=== PATIENT | male | born 1935 | race Caucasian/White ===

== ENCOUNTER 2020-08-28 11:09 | Inpatient (IN) ==
[2020-08-28] MEDS ORDERED: 0.9 % SODIUM CHLORIDE 1,000 ML IV SCH (11:45)
--- NOTE | 2020-08-28 12:23 | XRay Report ---
CLINICAL INFORMATION: Altered mental status COMPARISON: 08/04/2018 FINDINGS: Sternotomy changes noted. The heart is minimally enlarged but unchanged. Mediastinum and pulmonary vessels are normal. Minor bibasilar atelectasis noted. A skin fold, bordering the lateral chest wall and the right mid and lower lung, mimics a pneumothorax. No effusion IMPRESSION: Minor bibasilar atelectasis Interpreted and Authenticated by: Eris Calix 08/28/20
[2020-08-28 12:41] LABS: Basophils # (Auto) 0.03 K/mcL (0.00-0.20); Basophils % (Auto) 0.4 % (0.0-2.0); Eosinophils # (Auto) 0.16 K/mcL (0.00-0.70); Eosinophils % (Auto) 2.3 % (0.0-7.0); Lymphocytes # (Auto) 0.75 K/mcL (1.50-4.80); Lymphocytes % (Auto) 10.6 % (15.0-49.0); Mean Cell Volume 97.8 fL (80.0-100.0); Mean Corpuscular HGB Conc 30.6 g/dL (31.0-36.0); Monocytes # (Auto) 0.77 K/mcL (0.10-0.90); Monocytes % (Auto) 10.9 % (1.0-12.0); Neutrophils % (Auto) 75.8 % (38.0-78.0); Platelet Count 293 K/mcL (140-440); RBC 3.68 M/mcL (4.50-5.90); WBC 7.1 K/mcL (4.5-11.0)
--- NOTE | 2020-08-28 12:46 | Cat Scan Report ---
CLINICAL INFORMATION: Altered mental status COMPARISON: Brain MRI 08/03/2019 TECHNIQUE: 2.5 mm helical slices were obtained in the skull base to vertex. Following reconstruction, axial reformatted images were reviewed at bone and parenchymal windows. The exam was performed using radiation dose optimization techniques including, but not limited to, automated exposure control, adjustment of the mA and/or kV according to patient size and use of iterative reconstruction technique. FINDINGS: Shunt catheter enters through a right frontal craniotomy extending through the right frontal lobe into the frontal horn of the right lateral ventricle. The tip is in the foramen of Kirk. The ventricles, sulci, fissures, and cisterns are proportionately enlarged compatible with mild atrophy. There is no disproportionate ventricular enlargement to suggest recurrent normal pressure hydrocephalus.. No extra-axial fluid collections are identified. The cerebrum, brainstem and cerebellum are, otherwise unremarkable. There is no evidence of hemorrhage, mass effect, or edema. Bone windows show no osseous abnormality. 22 mm region of increased density in the anterior posterior chamber of the right eye has been stable since 2019 and presumably is a surgical prostheses IMPRESSION: MAMMALOGIST shunt catheter in stable satisfactory position and appears to be functional. No evidence of recurrent NPH. Mild underlying atrophy expected for age. Interpreted and Authenticated by: Eris Calix 08/28/20
[2020-08-28 12:59] LABS: ALT/SGPT 19 U/L (<40); AST/SGOT 43 U/L (<40); Albumin 3.2 gm/dL (3.2-5.2); Albumin/Globulin Ratio 0.8 (1.0-2.3); Alkaline Phosphatase 123 U/L (39-117); Bilirubin,Total 0.2 mg/dL (0.1-1.0); Blood Urea Nitrogen 43 mg/dL (8-23); Carbon Dioxide 34 mmol/L (22-30); Chloride 97 mmol/L (96-108); Globulin 3.8 gm/dL (2.2-3.7); Glomerular Filtration Rate 20; Glucose 104 mg/dL (70-105)
[2020-08-28] MEDS ORDERED: 0.9 % SODIUM CHLORIDE 1,000 ML IV ONE (14:26)
--- NOTE | 2020-08-28 14:42 | Emergency Department Note ---
Altered Mental Status HPI General Chief Complaint: Altered Mental Status Stated Complaint: confusion Time Seen by Provider: 08/28/20 11:12 Source: patient, family, EMS, RN notes reviewed and old records reviewed Mode of arrival: wheelchair Limitations: altered mental status History of Present Illness HPI Narrative: Narrative: 85-year-old male complaining of increasing generalized weakness, knees giving out, difficulty walking x2 days. Is also noted clonic activity in his right upper extremity. This is new to him. He has had poor p.o. intake poor urine output for the last 2 days. He denies any focal weakness any loss of control of bowel or bladder any fevers or chills any headache any nausea vomiting bowel or bladder changes. MD complaint: altered mental status, confusion and weakness Onset (ago): day(s) (2) Timing confirmed by: family member Severity: moderate Consistency of Symptoms: getting worse Context: history of similar presentation and other (Hydrocephalus) Associated symptoms: Reports loss of appetite, malaise, weakness and difficulty walking; Denies chest pain, cough, diaphoresis, fever, chills, headaches, nausea/vomiting, rash, seizure, shortness of breath, syncope, foul smelling urine, diarrhea and incontinence Related Data Home Medications Medication Instructions Recorded Confirmed omega-3 fatty acids 500 mg capsule 1,000 mg PO QDAY cap 01/18/15 08/28/20 aspirin 325 mg tablet 325 mg PO QDAY 09/29/17 08/28/20 cyanocobalamin (vitamin B-12) 2,500 mcg PO QDAY 05/20/19 08/28/20 2,500 mcg tablet diphenhydramine 25 1 tab PO QHS 05/20/19 08/28/20 mg-acetaminophen 500 mg tablet echinacea 380 mg capsule 760 mg PO ONCE cap 05/20/19 08/28/20 glucosamine-chondroitin 250 mg-200 1 tab PO QDAY tab 05/20/19 08/28/20 mg tablet melatonin 5 mg capsule 5 - 10 mg PO QHS cap 05/20/19 08/28/20 multivitamin 1 tab PO QAM 05/20/19 08/28/20 vit C 250 mg-vit E 90 mg-zinc 40 1 tab PO QDAY cap 05/20/19 08/28/20 mg-copper 1 sp-[id number]-[id number] capsule Previous Rx's Medication Instructions Recorded nitroglycerin 0.4 mg sublingual 0.4 mg SUBLINGUAL Q5-15M PRN #25 10/05/18 tablet tab metformin 500 mg tablet 500 mg PO BID #180 tab 02/29/20 isosorbide mononitrate 30 mg 15 mg PO QDAY #45 tab 05/16/20 tablet,extended release 24 hr meloxicam 7.5 mg tablet 7.5 mg PO QDAY #60 tab 05/31/20 tramadol 50 mg tablet 50 mg PO BID PRN #60 tab 05/31/20 atorvastatin 20 mg tablet 20 mg PO QDAY #90 tab 06/07/20 gabapentin 300 mg capsule 300 mg PO BID #180 cap 06/07/20 levothyroxine 100 mcg tablet 100 mcg PO QDAY #90 tab 07/17/20 midodrine 10 mg tablet 5 mg PO TID #45 tab 08/08/20 Allergies Allergy/AdvReac Type Severity Reaction Status Date / Time No Known Drug Allergies Allergy Verified 08/28/20 11:13 Review of Systems ROS ROS Narrative: Narrative: All systems ED: reviewed and negative except as stated. [facility] Narrative Patient History Narrative: Narrative: Medical/Surgical/Family History All Active Problems (Updated 08/28/20 @ 16:17 by Shmuel Spivey MD) Acute renal failure (Acute) Medicare annual wellness visit, subsequent (Acute) Edema of left lower extremity (Chronic) Left ankle pain (Chronic) Macular degeneration (Chronic) High cholesterol (Chronic) Personal history of malignant neoplasm of bladder (Chronic) Spondylosis without myelopathy or radiculopathy, lumbar region (Chronic) senior living (current) use of opiate analgesic (Chronic) UTI (urinary tract infection) (Acute) Weakness (Acute) Left rib fracture (Acute) 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) Contracture of hand (Chronic) Numbness and tingling in both hands (Acute) NPH (normal pressure hydrocephalus) (Chronic) Prostate cancer (Chronic) Hypotension (Chronic) Hydrocephalus (Chronic) Ataxia (Acute) COPD (chronic obstructive pulmonary disease) (Chronic) CAD (coronary artery disease) (Chronic) 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) Diabetes mellitus type 2, controlled (Chronic) Pulmonary hypertension, primary (Chronic) Peripheral vascular disease (Chronic) PVD (peripheral vascular disease) with claudication (Chronic) Stable angina pectoris (Chronic) Metabolic syndrome X (Chronic) Overweight (BMI 25.0-29.9) (Chronic) Hyperlipidemia (Chronic) Hyperlipidemia associated with type 2 diabetes mellitus (Chronic) Trochanteric bursitis of left hip (Chronic) Urine incontinence (Chronic) Altered mental status (Acute) Dizziness (Chronic) Bladder cancer (Chronic) RODNEY (dyspnea on exertion) (Chronic) Hyperuricemia (Chronic) Chronic pain (Chronic) Low Back Pain (Chronic) 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 Intermittent confusion and poor memory, ataxia, and urinary incontinence with urgency, possibly secondary to NPH MR brain with contrast scheduled for August 03. This is been delayed a couple of times for various reasons. Refer to neurology today, may need neurosurgery referral also. We will try and set up home health nurse visits for him because he is not able to care for himself currently, and his one friend that helps him is overworked Anemia Stable. Mild-normochromic normocytic. No source of bleeding. Continue iron supplementation. Monitor CBCs. Ataxia Thought to be secondary to UTI, but more likely related to possible NPH Bladder cancer Confirmed by [facility]. Treated with instillations of mitomycin C. Blepharitis CAD (coronary artery disease) post CABG 2003 5 vessel Stress test 03/10/2019 showed no reversible ischemia, mild hypokinesis of the inferior wall, and a EF of 46%. Carotid bruit Carotid stenosis Bilateral carotid endarterectomies Carpal tunnel syndrome of right wrist Pain well controlled after steroid injection, as well as gabapentin, tramad ol, and meloxicam. Tramadol dose is 50 mg, 1-2 times daily. DISINTEGRATOR reviewed, no concerns. We will contact home health about OT specifically working on his right hand Cellulitis Chest pain Rarely slight chest tightness. Has not used nitroglycerin. 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 We will do it at next visit. Diverticulosis of colon 08/18/2012 Dizziness Multifactorial, related to peripheral neuropathy, possibly orthostasis, altho ugh orthostatics were negative today. We will wean off of fludrocortisone 0.025 mg daily Continue fluid intake of 3-4 bottles of water per day Start midodrine 5 mg 3 times daily Continue to monitor blood pressure at home RODNEY (dyspnea on exertion) Occasionally Erectile dysfunction Patient okay for possible procedures with urology if desired, but he should not take Viagra or other ED medications due to low blood pressures and current use of isosorbide. Exudative senile macular degeneration of retina OD>OS Facet arthropathy 08/25/14-[place] Gout Hematuria High cholesterol Hydrocephalus MRI with contrast pending for further characterization of possible NPH Referred to neurology for help with work-up, but may need neurosurgery for treatment Hyperlipidemia Restart Lipitor 20 mg daily Hyperlipidemia associated with type 2 diabetes mellitus Hypertension, essential Elevated today. Takes only isosorbide. Fludrocortisone for hypotension was just stopped a couple of weeks ago. Goal less than 150/90. Continue monitoring at home. Let me know if not below goal. Hyperuricemia Hypotension No longer taking fludrocortisone. No longer having hypotensive episodes. 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 Patient did not use finger brace as recommended. He also did not follow-up with Dr. Michele. Medicare annual wellness visit, subsequent Metabolic syndrome X NPH (normal pressure hydrocephalus) Status post CARD SORTER shunt with mild improvement of symptoms. Continues to have dizziness and ataxia. Explained to patient that we may not be able to improve his symptoms completely. Trial of meclizine Patient should use a walker at all times. Patient may follow-up with Dr. Vega as needed Numbness and tingling in both hands Possibly secondary to peripheral neuropathy secondary to diabetes Will check TSH, B12, folate Osteoarthritis of spine Overweight (BMI 25.0-29.9) Peripheral vascular disease Personal history of malignant neoplasm of bladder Prostate cancer New diagnosis based on pathology of shavings from TURP Watch and wait approach, per urology. Pseudophakia Pulmonary hypertension, primary PVD (peripheral vascular disease) with claudication Follows with Dr. Urias Continue aspirin and statin Retinal detachment 10/24/14-[place] Spinal stenosis of lumbar region 08/25/14-[place] Spondylosis without myelopathy or radiculopathy, lumbar region Stable angina pectoris Trochanteric bursitis of left hip Steroid injection today. See procedure note for details. Tolerated well. Tubular adenoma Urine incontinence Secondary to recent TURP. But possible NPH may be contributing Myrbetriq is helping. Patient wears depends now. He was referred for pelvic floor physical therapy by urology. UTI (urinary tract infection) Completed course of Macrobid Check urine dipstick and culture today UTI (urinary tract infection) Surgical History Abnormal cystoscopy 02/11/2018 TURBT. Urethral stricture. Mitomycin-C. Dr. Ranulfo Camejo. History of carotid endarterectomy Left, right done 11/23/2012 w/Vascu-Guard patch angioplasty History of cataract surgery Bilateral History of cholecystectomy History of colonoscopy 07/28/2012 Dr. Mendez Result: Tubular Adenoma History of coronary artery bypass graft 2004 5 bypass grafts History of esophagogastroduodenoscopy (07/15/17) 07/26/2012 No abnormalities found. 07/15/17 Mild Schatzki ring. History of hernia repair History of surgery LESI #2 L2-3 w/o sed 08/29/201404/22 LESI #1 L2-3 w/o sed 04/18/1409/20 LESI #1 L2-3 w/o sed 09/28/201305/21 LESI #3 L2-3 w/o sed 05/18/1304/21 LESI #2 L3-4 w/o sed 04/19/201303/21 LESI #1, L3-4 03/24/13 w/o sed 05/20 VI #2 w/cath w/o sed 05/19/201204/20 VI #1 w/cath w/o sed 05/06/2012 History of transurethral resection of prostate Status post lumbar spinal fusion Family History Brother Diabetes mellitus Cardiac disease Father Diabetes mellitus Heart failure Cerebrovascular accident at age 84 Mother Acute myocardial infarction Passed at age 74 Uncle Type 2 diabetes mellitus Social History Smoking Status: Former smoker Alcohol Intake Frequency: former alcohol drinker Substance Use: does not use Exam Narrative Narrative: Narrative: General Limitations: altered mental status General appearance: Present alert, in no apparent distress, malaise and thin Head Head: Present normocephalic and other (V P shunt depresses easily and refills well.) Eye Eye: Present normal appearance, EOMI and other (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) ENT ENT: Present normal exam and mucous membranes dry Neck Neck: Present normal inspection and full ROM Chest Chest: Present normal inspection; Absent tenderness Respiratory Respiratory: Present normal lung sounds bilaterally; Absent respiratory distress Cardiovascular Cardiovascular: Present regular rate, normal rhythm and systolic murmur Adbominal Abdominal: Present soft; Absent distention, tenderness, guarding and rebound Extremities Extremities: Present normal inspection and full ROM; Absent tenderness, pedal edema and pretibial edema Back Back: Present normal inspection; Absent CVA tenderness (R) and CVA tenderness (L) Neurological Neurological: Present alert and oriented X3 Psychiatric Psychiatric: Present normal affect and normal mood Skin Skin: Present warm (WNL); Absent rash Course Vital Signs Vital signs: Vital Signs Temperature 97.7 F 08/28/20 11:10 Pulse Rate 87 08/28/20 11:10 Respiratory Rate 18 08/28/20 11:10 Blood Pressure 168/88 08/28/20 11:10 Pulse Oximetry (%) 91 08/28/20 11:10 Temperature 97.7 F 08/28/20 11:10 Pulse Rate 88 08/28/20 16:04 Respiratory Rate 18 08/28/20 16:04 Blood Pressure 143/115 08/28/20 16:04 Pulse Oximetry (%) 96 08/28/20 16:04 [facility] MDM Narrative Medical decision making narrative: Narrative: 85-year-old male with generalized weakness nonfocal. Has an elevated BUN/creatinine ratio at 43/2.8 and this acute renal insufficiency is new when compared to old labs. He has anemia which has been noted in the past and his relative Graham unchanged compared to old H&H. Head CT shows known hydrocephalus his CARD SORTER shunt appears to be functioning well and I do not believe this is contributory according to son he has had very poor p.o. intake over the last week and the patient appears grossly dehydrated. Diagnosis acute renal insufficiency with acute dehydration. Patient will be admitted for IV fluid rehydration and to follow his renal insufficiency. Medical Records Medical records reviewed: Yes I reviewed the patient's medical records. Lab Data Lab results reviewed: Yes I reviewed the patient's lab results. Result diagrams: 08/28/20 11:46 08/28/20 11:46 Labs: Lab Results 08/28/20 08/28/20 08/28/20 Range/Units 11:46 11:46 11:50 WBC 7.1 (4.5-11.0) K/mcL RBC 3.68 L (4.50-5.90) M/mcL Hgb 11.0 L (13.5-16.5) g/dL Hct 36.0 L (41.0-55.0) % MCV 97.8 (80.0-100.0) fL MCH 29.9 (26.0-34.0) pg MCHC 30.6 L (31.0-36.0) g/dL RDW 13.0 (11.5-14.5) % Plt Count 293 (140-440) K/mcL MPV 9.0 (7.4-10.4) fL Neut % (Auto) 75.8 (38.0-78.0) % Lymph % (Auto) 10.6 L (15.0-49.0) % [place] % (Auto) 10.9 (1.0-12.0) % Eos % (Auto) 2.3 (0.0-7.0) % Baso % (Auto) 0.4 (0.0-2.0) % Lymph # (Auto) 0.75 L (1.50-4.80) K/mcL [place] # (Auto) 0.77 (0.10-0.90) K/mcL Eos # (Auto) 0.16 (0.00-0.70) K/mcL Baso # (Auto) 0.03 (0.00-0.20) K/mcL Absolute Neutrophils 5.38 (1.80-8.00) K/mcL VBG Lactic Acid 1.1 (0.5-2.0) mmol/L Sodium 141 (133-145) mmol/L Potassium 4.2 (3.3-5.1) mmol/L Chloride 97 (96-108) mmol/L Carbon Dioxide 34 H (22-30) mmol/L Anion Gap 10.0 (8.0-16.0) BUN 43 H (8-23) mg/dL Creatinine 2.8 H (0.7-1.2) mg/dL GFR Calculation 20 Glucose 104 (70-105) mg/dL Calcium 9.0 (8.6-10.4) mg/dL Total Bilirubin 0.2 (0.1-1.0) mg/dL AST 43 H (<40) U/L ALT 19 (<40) U/L Alkaline Phosphatase 123 H (39-117) U/L Ammonia (16-60) umol/L Total Protein 7.0 (5.9-8.4) gm/dL Albumin 3.2 (3.2-5.2) gm/dL Globulin 3.8 H (2.2-3.7) gm/dL Albumin/Globulin Ratio 0.8 L (1.0-2.3) 08/28/20 Range/Units 11:50 WBC (4.5-11.0) K/mcL RBC (4.50-5.90) M/mcL Hgb (13.5-16.5) g/dL Hct (41.0-55.0) % MCV (80.0-100.0) fL MCH (26.0-34.0) pg MCHC (31.0-36.0) g/dL RDW (11.5-14.5) % Plt Count (140-440) K/mcL MPV (7.4-10.4) fL Neut % (Auto) (38.0-78.0) % Lymph % (Auto) (15.0-49.0) % [place] % (Auto) (1.0-12.0) % Eos % (Auto) (0.0-7.0) % Baso % (Auto) (0.0-2.0) % Lymph # (Auto) (1.50-4.80) K/mcL [place] # (Auto) (0.10-0.90) K/mcL Eos # (Auto) (0.00-0.70) K/mcL Baso # (Auto) (0.00-0.20) K/mcL Absolute Neutrophils (1.80-8.00) K/mcL VBG Lactic Acid (0.5-2.0) mmol/L Sodium (133-145) mmol/L Potassium (3.3-5.1) mmol/L Chloride (96-108) mmol/L Carbon Dioxide (22-30) mmol/L Anion Gap (8.0-16.0) BUN (8-23) mg/dL Creatinine (0.7-1.2) mg/dL GFR Calculation Glucose (70-105) mg/dL Calcium (8.6-10.4) mg/dL Total Bilirubin (0.1-1.0) mg/dL AST (<40) U/L ALT (<40) U/L Alkaline Phosphatase (39-117) U/L Ammonia 22 (16-60) umol/L Total Protein (5.9-8.4) gm/dL Albumin (3.2-5.2) gm/dL Globulin (2.2-3.7) gm/dL Albumin/Globulin Ratio (1.0-2.3) Radiology Data Radiology results reviewed: Yes I reviewed the patient's radiology results. EKG Data EKG #1: EKG attestation: Yes I reviewed and interpreted this EKG. EKG shows normal: sinus rhythm Rate: normal (85) Rhythm: NSR [place]/QRS: normal Heart block present: None ST segment elevation in: None ST segment depression in: None Q waves: None T wave inversions noted in: None Hyperacute T waves: None QTc: normal QRS morphology: Present normal Interpretation: no acute changes and normal EKG Pulse Oximetry Data Pulse Ox %: 94 Interpretation: 94% within normal limits Discharge Plan Patient/Caregiver Discharge Instructions Pt seen by OIL FIELD PUMPER/PA only: No Clinical Impression: Weakness, Acute renal failure Patient Disposition: Xfer As Inpt ([facility]) Follow up with: Eris Lane DO [Primary Care Provider] - Prescriptions: No Action isosorbide mononitrate 30 mg tablet extended release 24 hr 15 mg PO QDAY Qty: 45 RF: 3 meloxicam 7.5 mg tablet 7.5 mg PO QDAY Qty: 60 RF: 1 tramadol 50 mg tablet 50 mg PO BID PRN (Reason: pain) Qty: 60 RF: 2 levothyroxine 100 mcg tablet 100 mcg PO QDAY Qty: 90 RF: 3 midodrine 10 mg tablet 5 mg PO TID Qty: 45 RF: 1 omega-3 fatty acids 500 mg capsule 1,000 mg PO QDAY RF: 0 aspirin 325 mg tablet 325 mg PO QDAY RF: 0 nitroglycerin 0.4 mg tablet, sublingual 0.4 mg SUBLINGUAL Q5-15M PRN (Reason: chest pain) Qty: 25 RF: 3 PreserVision AREDS-2 875-874-89-1 vy-euat-cm-mg capsule 1 tab PO QDAY RF: 0 multivitamin Tablet 1 tab PO QAM RF: 0 melatonin 5 mg capsule 5 - 10 mg PO QHS RF: 0 cyanocobalamin (vitamin B-12) 2,500 mcg tablet 2,500 mcg PO QDAY RF: 0 glucosamine-chondroitin [Osteo Bi-Flex] 250-200 mg tablet 1 tab PO QDAY RF: 0 diphenhydramine-acetaminophen [Tylenol PM Extra Strength] 25-500 mg tablet 1 tab PO QHS RF: 0 echinacea 380 mg capsule 760 mg PO ONCE RF: 0 metformin 500 mg tablet 500 mg PO BID Qty: 180 RF: 3 gabapentin 300 mg capsule 300 mg PO BID Qty: 180 RF: 1 atorvastatin 20 mg tablet 20 mg PO QDAY Qty: 90 RF: 1
--- NOTE | 2020-08-28 17:13 | Internal Med History&Physical ---
HPI History of Present Illness Patient information: Note initiated : 08/28/20 at 5:05 pm Service Date, if different from initiated Date: [] Patient: Gio Abreu a 85 y/o M admitted on for confusion. Chief Complaint: [] History of present illness: Mr. Abreu is a 85 year old M Presents to the ED after several days of increasing weakness and intermittent confusion although he has hydrocephalus most notably is also had some twitching in his arm. In the ED with remarkable for acute kidney injury. Also found to be retaining urine and had 540cc remaining in bladder after small urination. He also had chest x-ray which showed a little bit of atelectasis and he had a CT brain which showed the TRUSS MAKER shunt in satisfactory position functional Question of poor oral intake recently. He lives by himself but has somebody stay with him at night. Review of Systems: denies headache/fever/chills/nausea/vomiting/chest or abdominal pain/cough/dyspnea/diarrhea. Otherwise see above. 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) Contracture of hand (Chronic) Numbness and tingling in both hands (Acute) NPH (normal pressure hydrocephalus) (Chronic) Prostate cancer (Chronic) Hypotension (Chronic) Hydrocephalus (Chronic) Ataxia (Acute) COPD (chronic obstructive pulmonary disease) (Chronic) CAD (coronary artery disease) (Chronic) 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) Diabetes mellitus type 2, controlled (Chronic) Pulmonary hypertension, primary (Chronic) Peripheral vascular disease (Chronic) PVD (peripheral vascular disease) with claudication (Chronic) Stable angina pectoris (Chronic) Metabolic syndrome X (Chronic) Overweight (BMI 25.0-29.9) (Chronic) Hyperlipidemia (Chronic) Hyperlipidemia associated with type 2 diabetes mellitus (Chronic) Trochanteric bursitis of left hip (Chronic) Urine incontinence (Chronic) Altered mental status (Acute) Dizziness (Chronic) Bladder cancer (Chronic) RODNEY (dyspnea on exertion) (Chronic) Hyperuricemia (Chronic) Chronic pain (Chronic) Low Back Pain (Chronic) 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 Intermittent confusion and poor memory, ataxia, and urinary incontinence with urgency, possibly secondary to NPH MR brain with contrast scheduled for August 03. This is been delayed a couple of times for various reasons. Refer to neurology today, may need neurosurgery referral also. We will try and set up home health nurse visits for him because he is not able to care for himself currently, and his one friend that helps him is overworked Anemia Stable. Mild-normochromic normocytic. No source of bleeding. Continue iron supplementation. Monitor CBCs. Ataxia Thought to be secondary to UTI, but more likely related to possible NPH Bladder cancer Confirmed by [place] [facility]. Treated with instillations of mitomycin C. Blepharitis CAD (coronary artery disease) post CABG 2003 5 vessel Stress test 03/10/2019 showed no reversible ischemia, mild hypokinesis of the inferior wall, and a EF of 46%. Carotid bruit Carotid stenosis Bilateral carotid endarterectomies Carpal tunnel syndrome of right wrist Pain well controlled after steroid injection, as well as gabapentin, tramadol, and meloxicam. Tramadol dose is 50 mg, 1-2 times daily. [employer] reviewed, no concerns. We will contact home health about OT specifically working on his right hand Cellulitis Chest pain Rarely slight chest tightness. Has not used nitroglycerin. 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 We will do it at next visit. Diverticulosis of colon 08/18/2012 Dizziness Multifactorial, related to peripheral neuropathy, possibly orthostasis, although orthostatics were negative today. We will wean off of fludrocortisone 0.025 mg daily Continue fluid intake of 3-4 bottles of water per day Start midodrine 5 mg 3 times daily Continue to monitor blood pressure at home RODNEY (dyspnea on exertion) Occasionally Erectile dysfunction Patient okay for possible procedures with urology if desired, but he should not take Viagra or other ED medications due to low blood pressures and curre nt use of isosorbide. Exudative senile macular degeneration of retina OD>OS Facet arthropathy 08/25/14-[place] Gout Hematuria High cholesterol Hydrocephalus MRI with contrast pending for further characterization of possible NPH Referred to neurology for help with work-up, but may need neurosurgery for treatment Hyperlipidemia Restart Lipitor 20 mg daily Hyperlipidemia associated with type 2 diabetes mellitus Hypertension, essential Elevated today. Takes only isosorbide. Fludrocortisone for hypotension was just stopped a couple of weeks ago. Goal less than 150/90. Continue monitoring at home. Let me know if not below goal. Hyperuricemia Hypotension No longer taking fludrocortisone. No longer having hypotensive episodes. Hypothyroidism Has been well controlled on Synthroid 100 mcg daily Check TSH emt intermediate (current) use of opiate analgesic Low Back Pain Macular degeneration Mallet finger of right hand Likely permanent deformity now. Patient did not use finger brace as r ecommended. He also did not follow-up with Dr. Michele. Medicare annual wellness visit, subsequent Metabolic syndrome X NPH (normal pressure hydrocephalus) Status post TRUSS MAKER shunt with mild improvement of symptoms. Continues to have dizziness and ataxia. Explained to patient that we may not be able to improve his symptoms completely. Trial of meclizine Patient should use a walker at all times. Patient may follow-up with Dr. Vega as needed Numbness and tingling in both hands Possibly secondary to peripheral neuropathy secondary to diabetes Will check TSH, B12, folate Osteoarthritis of spine Overweight (BMI 25.0-29.9) Peripheral vascular disease Personal history of malignant neoplasm of bladder Prostate cancer New diagnosis based on pathology of shavings from TURP Watch and wait approach, per urology. Pseudophakia Pulmonary hypertension, primary PVD (peripheral vascular disease) with claudication Follows with Dr. Urias Continue aspirin and statin Retinal detachment 10/24/14-[place] Spinal stenosis of lumbar region 08/25/14-[place] Spondylosis without myelopathy or radiculopathy, lumbar region Stable angina pectoris Trochanteric bursitis of left hip Steroid injection today. See procedure note for details. Tolerated well. Tubular adenoma Urine incontinence Secondary to recent TURP. But possible NPH may be contributing Myrbetriq is helping. Patient wears depends now. He was referred for pelvic floor physical therapy by urology. UTI (urinary tract infection) Completed course of Macrobid Check urine dipstick and culture today UTI (urinary tract infection) Surgical History Abnormal cystoscopy 02/11/2018 TURBT. Urethral stricture. Mitomycin-C. Dr. Ranulfo Camejo. History of carotid endarterectomy Left, right done 11/23/2012 w/Vascu-Guard patch angioplasty History of cataract surgery Bilateral History of cholecystectomy History of colonoscopy 07/28/2012 Dr. Mendez Result: Tubular Adenoma History of coronary artery bypass graft 2004 5 bypass grafts History of esophagogastroduodenoscopy (07/15/17) 07/26/2012 No abnormalities found. 07/15/17 Mild Schatzki ring. History of hernia repair History of surgery LESI #2 L2-3 w/o sed 08/29/201404/22 LESI #1 L2-3 w/o sed 04/18/1409/20 LESI #1 L2-3 w/o sed 09/28/201305/21 LESI #3 L2-3 w/o sed 05/18/1304/21 LESI #2 L3-4 w/o sed 04/19/201303/21 LESI #1, L3-4 03/24/13 w/o sed 05/20 VI #2 w/cath w/o sed 05/19/201204/20 VI #1 w/cath w/o sed 05/06/2012 History of transurethral resection of prostate Status post lumbar spinal fusion Family History Brother Diabetes mellitus Cardiac disease Father Diabetes mellitus Heart failure Cerebrovascular accident at age 84 Mother Acute myocardial infarction Passed at age 74 Uncle Type 2 diabetes mellitus Social History household members: alone housing: house lives independently: Yes marital status: 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 smoking status: Former smoker alcohol intake frequency: former alcohol drinker substance use type: does not use MEDS/ALLERGIES Home Medications and Allergies Home Medications Medication Instructions Recorded Confirmed Type omega-3 fatty acids 500 mg capsule 1,000 mg PO QDAY cap 01/18/15 08/28/20 History aspirin 325 mg tablet 325 mg PO QDAY 09/29/17 08/28/20 History nitroglycerin 0.4 mg sublingual 0.4 mg SUBLINGUAL Q5-15M PRN #25 10/05/18 08/28/20 Rx tablet tab cyanocobalamin (vitamin B-12) 2,500 mcg PO QDAY 05/20/19 08/28/20 History 2,500 mcg tablet diphenhydramine 25 1 tab PO QHS 05/20/19 08/28/20 History mg-acetaminophen 500 mg tablet echinacea 380 mg capsule 760 mg PO ONCE cap 05/20/19 08/28/20 History glucosamine-chondroitin 250 mg-200 1 tab PO QDAY tab 05/20/19 08/28/20 History mg tablet melatonin 5 mg capsule 5 - 10 mg PO QHS cap 05/20/19 08/28/20 History multivitamin 1 tab PO QAM 05/20/19 08/28/20 History vit C 250 mg-vit E 90 mg-zinc 40 1 tab PO QDAY cap 05/20/19 08/28/20 History mg-copper 1 [id number] capsule metformin 500 mg tablet 500 mg PO BID #180 tab 02/29/20 08/28/20 Rx isosorbide mononitrate 30 mg 15 mg PO QDAY #45 tab 05/16/20 08/28/20 Rx tablet,extended release 24 hr meloxicam 7.5 mg tablet 7.5 mg PO QDAY #60 tab 05/31/20 08/28/20 Rx tramadol 50 mg tablet 50 mg PO BID PRN #60 tab 05/31/20 08/28/20 Rx atorvastatin 20 mg tablet 20 mg PO QDAY #90 tab 06/07/20 08/28/20 Rx gabapentin 300 mg capsule 300 mg PO BID #180 cap 06/07/20 08/28/20 Rx levothyroxine 100 mcg tablet 100 mcg PO QDAY #90 tab 07/17/20 08/28/20 Rx midodrine 10 mg tablet 5 mg PO TID #45 tab 08/08/20 08/28/20 Rx Allergies Allergy/AdvReac Type Severity Reaction Status Date / Time No Known Drug Allergies Allergy Verified 08/28/20 11:13 EXAM Constitutional Vitals: Temp Pulse Resp BP Pulse Ox 97.7 F 86 19 181/132 100 08/28/20 11:10 08/28/20 16:33 08/28/20 16:33 08/28/20 16:33 08/28/20 16:33 Exam: General: Alert, Awake, No acute Distress Eyes/N/T: EOMI, PERRL, dry MM Head/Neck: neck supple, normocephalic atraumatic CV: RRR, No murmurs, normal s1/s2 Pulm: Clear b/l, no wheezing/rhonchi/rales Abd: soft, nontender, +BS x4 Ext: no clubbing/cyanosis/ chronic LLE edema - at 1+ Neuro: Alert, no focal deficits, moves all extremities, CN 2-12 grossly intact, symmetrical strength b/l upper/lower, sensations intact b/l upper/lower Skin: warm/dry DATA Data Completed and Pending Labs: Labs from last 24 hours 08/28/20 08/28/20 08/28/20 16:28 16:27 16:27 WBC RBC Hgb Hct MCV MCH MCHC RDW Plt Count MPV Neut % (Auto) Lymph % (Auto) [place] % (Auto) Eos % (Auto) Baso % (Auto) Lymph # (Auto) [place] # (Auto) Eos # (Auto) Baso # (Auto) Absolute Neutrophils VBG Lactic Acid Sodium Potassium Chloride Carbon Dioxide Anion Gap BUN Creatinine GFR Calculation Glucose Calcium Total Bilirubin AST ALT Alkaline Phosphatase Ammonia Total Protein Albumin Globulin Albumin/Globulin Ratio Urine Color Pending Urine Appearance Pending Urine pH Pending Ur Specific [place] Pending Urine Protein Pending Urine Glucose (UA) Pending Urine Ketones Pending Urine Occult Blood Pending Urine Nitrate Pending Urine Bilirubin Pending Urine Urobilinogen Pending Ur Leukocyte Esterase Pending Ur Random Creatinine Pending Ur Random Sodium Pending 08/28/20 08/28/20 08/28/20 11:50 11:50 11:46 WBC RBC Hgb Hct MCV MCH MCHC RDW Plt Count MPV Neut % (Auto) Lymph % (Auto) [place] % (Auto) Eos % (Auto) Baso % (Auto) Lymph # (Auto) [place] # (Auto) Eos # (Auto) Baso # (Auto) Absolute Neutrophils VBG Lactic Acid 1.1 Sodium 141 Potassium 4.2 Chloride 97 Carbon Dioxide 34 H Anion Gap 10.0 BUN 43 H Creatinine 2.8 H GFR Calculation 20 Glucose 104 Calcium 9.0 Total Bilirubin 0.2 AST 43 H ALT 19 Alkaline Phosphatase 123 H Ammonia 22 Total Protein 7.0 Albumin 3.2 Globulin 3.8 H Albumin/Globulin Ratio 0.8 L Urine Color Urine Appearance Urine pH Ur Specific [place] Urine Protein Urine Glucose (UA) Urine Ketones Urine Occult Blood Urine Nitrate Urine Bilirubin Urine Urobilinogen Ur Leukocyte Esterase Ur Random Creatinine Ur Random Sodium 08/28/20 11:46 WBC 7.1 RBC 3.68 L Hgb 11.0 L Hct 36.0 L MCV 97.8 MCH 29.9 MCHC 30.6 L RDW 13.0 Plt Count 293 MPV 9.0 Neut % (Auto) 75.8 Lymph % (Auto) 10.6 L [place] % (Auto) 10.9 Eos % (Auto) 2.3 Baso % (Auto) 0.4 Lymph # (Auto) 0.75 L [place] # (Auto) 0.77 Eos # (Auto) 0.16 Baso # (Auto) 0.03 Absolute Neutrophils 5.38 VBG Lactic Acid Sodium Potassium Chloride Carbon Dioxide Anion Gap BUN Creatinine GFR Calculation Glucose Calcium Total Bilirubin AST ALT Alkaline Phosphatase Ammonia Total Protein Albumin Globulin Albumin/Globulin Ratio Urine Color Urine Appearance Urine pH Ur Specific [place] Urine Protein Urine Glucose (UA) Urine Ketones Urine Occult Blood Urine Nitrate Urine Bilirubin Urine Urobilinogen Ur Leukocyte Esterase Ur Random Creatinine Ur Random Sodium A/P Narrative A/P Narrative: A: 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
[2020-08-28 17:25] LABS: Appearance,Urine HAZY (Clear); Bilirubin,Urine Negative (Negative); Color,Urine YELLOW; Culture Indicated,Urine No; Glucose,Urine (UA) Negative (Negative); Ketones,Urine Negative (Negative); Leukocyte Esterase,Urine Negative /ug (Negative); Nitrate,Urine Negative (Negative); Protein,Urine Negative (Negative); Specific Gravity,Urine 1.013 (1.000-1.035); Urine Blood Negative (Negative); Urobilinogen,Urine Negative
--- NOTE | 2020-08-28 18:43 | Ultrasound Report ---
CLINICAL INFORMATION: bladder outlet obstruction COMPARISON: Abdomen CT 08/04/2018 FINDINGS: Both kidneys are normal and symmetric in size, position, configuration and echotexture: The right is 11.3 x 6.5 cm and the left is 12 x 6 cm. Mild bilateral hydronephrosis noted. No stone, solid or cystic lesion identified. Urinary bladder volume is 645 cc. the patient unable to void. 1.3 cm diverticulum projects from the posterior urinary bladder Prostate is 2.6 x 1.8 x 3.6 cm IMPRESSION: Mild bilateral hydronephrosis likely related to chronic bladder outlet narrowing due to enlarged prostate. Interpreted and Authenticated by: Eris Calix 08/28/20
[2020-08-28] MEDS ORDERED: DEXTROSE 50% 50 ML VIAL IV PRN (19:55)
[2020-08-28] MEDS ORDERED: IPRATROPIUM/ALBUTEROL 3 ML AMPUL.NEB NEB PRN (19:55)
[2020-08-28] MEDS ORDERED: DEXTROSE 31 GM ORAL.SUSP PO PRN (19:55)
[2020-08-28] MEDS ORDERED: SENNOSIDES 1 TABLET PO PRN (19:55)
[2020-08-28] MEDS ORDERED: ONDANSETRON 4 MG/2 ML VIAL IV PRN (19:55)
[2020-08-28] MEDS ORDERED: MAGNESIUM SULFATE 2 GM/50 ML BAG IV PRN (19:55)
[2020-08-28] MEDS ORDERED: POTASSIUM CHLORIDE 40 MEQ in DEXTROSE 5% IN WATER 500 ML IV PRN (19:55)
[2020-08-28] MEDS ORDERED: POTASSIUM CHLORIDE 20 MEQ TABLET PO PRN ×2 (19:55)
[2020-08-28] MEDS ORDERED: NITROGLYCERIN 0.4 MG TAB.SUBL SL PRN (20:35)
[2020-08-28] MEDS ORDERED: ACETAMINOPHEN/DIPHENHYDRAMINE 1 TABLET PO SCH (21:00)
[2020-08-28] MEDS: 0.9 % SODIUM CHLORIDE 1,000 ML IV SCH (21:20)
[2020-08-28] MEDS: DOCUSATE SODIUM 100 MG CAPSULE PO SCH (21:20)
[2020-08-28] MEDS: GABAPENTIN 300 MG CAPSULE PO SCH (21:20)
[2020-08-28] MEDS: TAMSULOSIN 0.4 MG CAPSULE PO SCH (21:20)
[2020-08-28] MEDS: HEPARIN 5,000 UNIT/ML VIAL SQ SCH (21:21)
[2020-08-28] MEDS: diphenhydrAMINE 25 MG CAPSULE PO SCH (21:21)
[2020-08-28] MEDS: 0.9 % SODIUM CHLORIDE 10 ML SYRINGE IV SCH (21:21)
[2020-08-28] MEDS: MELATONIN 3 MG TABLET PO SCH (21:21)
[2020-08-28] MEDS: ACETAMINOPHEN 500 MG TABLET PO SCH (21:26)
[2020-08-28] MEDS: INSULIN LISPRO 1 UNIT/0.01 ML UNIT SQ SCH (21:26)
[2020-08-29] MEDS: 0.9 % SODIUM CHLORIDE 10 ML SYRINGE IV SCH ×3 (04:51→21:05)
[2020-08-29] MEDS ORDERED: LABETALOL 5 MG/ML ML IV PRN (07:04)
[2020-08-29] MEDS: LEVOTHYROXINE 100 MCG TABLET PO SCH (07:19)
--- NOTE | 2020-08-29 07:26 | Internal Med Progress Note ---
SUBJECTIVE Subjective Patient information: Note initiated : 08/29/20 at 7:20 am Service Date, if different from initiated Date: [] Patient: Gio Abreu 85 y/o M admitted on 08/28/20 for confusion. Chief Complaint: [] Interval history: History of present illness: Mr. Abreu is a 85 year old M Presents to the ED after several days of increasing weakness and intermittent confusion although he has hydrocephalus most notably is also had some twitching in his arm. In the ED with remarkable for acute kidney injury. Also found to be retaining urine and had 540cc remaining in bladder after small urination. He also had chest x-ray which showed a little bit of atelectasis and he had a CT brain which showed the ENGAGEMENT SPECIALIST shunt in satisfactory position functional Question of poor oral intake recently. He lives by himself but has somebody stay with him at night. 08/29 Poor sleep but otherwise feeling better. No new complaints. Creatinine did not improve. Discussed case with Dr. Mcneil and will see the patient KUB pending. Review of Systems: denies headache/fever/chills/nausea/vomiting/chest or abdominal pain/cough/dyspnea/diarrhea. Otherwise see above. Constitutional Vitals: Vital Signs Temp Pulse Resp BP Pulse Ox 98.0 F 91 H 18 173/90 95 08/29/20 04:39 08/29/20 04:39 08/29/20 04:39 08/29/20 04:39 08/29/20 04:39 Period Temp Pulse Resp BP Sys/Shelley Pulse Ox Last 24 Hr 97.7 F-98.9 F 78-96 16-27 143-187/80-132 91-100 Intake and Output 08/28/20 08/29/20 08/29/20 21:59 05:59 13:59 Intake Total 1999 300 Output Total 920 450 Balance 1080 -150 Weight 90.038 kg Intake & Output: Intake & Output 08/28/20 08/29/20 08/29/20 21:59 05:59 13:59 Intake Total 2000 300 Output Total 920 450 Balance 1080 -150 Weight 90.038 kg Intake: IV 2000 Sodium Chloride 0.9% 1,000 ml @ 2000 Wide Open IV BOLUS ONE Rx#: [id number] Oral 300 Output: Urine Catheter Amount 450 Void Amount 920 Uretheral (Eddy) 200 Other: Urine Appearance Clear Uretheral (Eddy) Clear Urine Color Bright Yellow Uretheral (Eddy) Bright Yellow Urine Odor Uretheral (Eddy) Normal Exam: General: Alert, Awake, No acute Distress Eyes/N/T: EOMI, Head/Neck: neck supple, CV: RRR, No murmurs, Pulm: Clear b/l, no wheezing/rhonchi/rales Abd: soft, nontender, +BS x4 Ext: no clubbing/cyanosis/ chronic LLE edema - at 1+ Neuro: Alert, no focal deficits, moves all extremities, Skin: warm/dry OBJ DATA Labs CBC & Chem 7: 08/29/20 06:28 08/29/20 06:27 Labs: Abnormal Lab Results 08/28/20 08/28/20 08/28/20 16:28 11:46 11:46 RBC 3.68 L Hgb 11.0 L Hct 36.0 L MCHC 30.6 L Lymph % (Auto) 10.6 L Lymph # (Auto) 0.75 L Carbon Dioxide 34 H BUN 43 H Creatinine 2.8 H AST 43 H Alkaline Phosphatase 123 H Globulin 3.8 H Albumin/Globulin Ratio 0.8 L Urine Appearance Hazy A Meds: Medications Acetaminophen (Acetaminophen 325 Mg Tablet) 650 mg PO Q6HP PRN PRN Reason: PAIN/FEVER > 101 Acetaminophen (Acetaminophen 500 Mg Tablet) 500 mg PO [facility] Last Admin: 08/28/20 21:26 Dose: 500 mg Documented by: Hydrocodone Bitart/Acetaminophen (Hydrocodone/Apap 5/325mg Tablet) 1 tab PO Q4HP PRN PRN Reason: PAIN LEVEL 3-6 Albuterol/Ipratropium (Ipratropium/Albuterol 3 Ml Ampul.Neb) 3 ml NEB Q4HP PRN PRN Reason: Shortness Of Breath Aspirin (Aspirin 81 Mg Tab.Chew) 81 mg PO QDAY ASHU Atorvastatin Calcium (Atorvastatin 20 Mg Tablet) 20 mg PO QDAY ASHU Dextrose (Dextrose 50% 50 Ml Vial) 0 ml IV UD PRN PRN Reason: Hypoglycemia Diagnostic Test (Pha) (Accu-Chek 1 Each Strip) 1 each FS ACHS [facility] Last Admin: 08/28/20 21:20 Dose: 1 each Documented by: Diphenhydramine HCl (Diphenhydramine 25 Mg Capsule) 25 mg PO [facility] Last Admin: 08/28/20 21:21 Dose: 25 mg Documented by: Docusate Sodium (Docusate Sodium 100 Mg Capsule) 100 mg PO BID [facility] Last Admin: 08/28/20 21:20 Dose: 100 mg Documented by: Gabapentin (Gabapentin 300 Mg Capsule) 300 mg PO BID [facility] Last Admin: 08/28/20 21:20 Dose: 300 mg Documented by: Glucose (Dextrose 31 Gm Oral.Susp) 15 gm PO PRN PRN PRN Reason: Hypoglycemia Heparin Sodium (Porcine) (Heparin 5,000 Unit/Ml Vial) 5,000 unit SQ Q12 [facility] Last Admin: 08/28/20 21:21 Dose: 5,000 unit Documented by: Hydralazine HCl (Hydralazine 20 Mg/Ml Vial) 0 mg IV Q2HP PRN PRN Reason: Hypertension Potassium Chloride 40 meq/ (Dextrose) 520 mls @ 130 mls/hr IV UD PRN PRN Reason: Potassium < 3 Magnesium Sulfate (Magnesium Sulfate) 2 gm in 50 mls @ 50 mls/hr IV UD PRN PRN Reason: Magnesium </= 1.6 Sodium Chloride (Sodium Chloride 0.9%) 1,000 mls @ 84 mls/hr IV .[id number] [facility] Last Admin: 08/28/20 21:20 Dose: 84 mls/hr Documented by: Insulin Human Lispro (Insulin Lispro 1 Unit/0.01 Ml Unit) 0 unit SQ ACHS [facility]; Protocol Last Admin: 08/28/20 21:26 Dose: 2 units Documented by: Isosorbide Mononitrate (Isosorbide Mononitrate 30 Mg Tab.Xl.24h) 15 mg PO QDAY [facility] Labetalol HCl (Labetalol 5 Mg/Ml Ml) 0 mg IV Q2HP PRN PRN Reason: Hypertension Levothyroxine Sodium (Levothyroxine 100 Mcg Tablet) 100 mcg PO QAMAC [facility] Melatonin (Melatonin 3 Mg Tablet) 6 - 9 mg PO QHS [facility] Last Admin: 08/28/20 21:21 Dose: 6 mg Documented by: Nitroglycerin (Nitroglycerin 0.4 Mg Tab.Subl) 0.4 mg SL Q5M PRN PRN Reason: Chest Pain Ondansetron HCl (Ondansetron 4 Mg/2 Ml Vial) 4 mg IV Q4HP PRN PRN Reason: Nausea And Vomiting Polyethylene Glycol (Polyethylene Glycol 3350 17 Gm Packet) 17 gm PO DAILYP PRN PRN Reason: Constipation Potassium Chloride (Potassium Chloride 20 Meq Tablet) 40 meq PO UD PRN PRN Reason: Potssium is 3-3.5 Potassium Chloride (Potassium Chloride 20 Meq Tablet) 40 meq PO UD PRN PRN Reason: Potassium < 3 Senna (Sennosides 1 Tablet) 2 tab PO DAILYP PRN PRN Reason: Constipation Sodium Chloride (0.9 % Sodium Chloride 10 Ml Syringe) 10 ml IV Q8 [facility] Last Admin: 08/29/20 04:51 Dose: Not Given Documented by: Tamsulosin HCl (Tamsulosin 0.4 Mg Capsule) 0.4 mg PO HS [facility] Last Admin: 08/28/20 21:20 Dose: 0.4 mg Documented by: Tramadol HCl (Tramadol 50 Mg Tablet) 50 mg PO BIDP PRN; Protocol PRN Reason: pain A/P Narrative A/P Narrative: A: 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: prerenal + UR -low FENa -Cr 2.8>2.9 *Mild b/l Hydronephrosis: *UR: s/p eddy in ED -h/o TURP one year ago *DM w/neuropathy: *NPH w/ENGAGEMENT SPECIALIST shunt: *CAD w/cabg: *Hypothyroidism: *Hyper/Hypo-TN: Recently started on midodrine for low blood outpt, elevated during admission *HTN: P: -IVF's -Urology consult, Ct kub -hold home meloxicam -hold metformin, SSI -Continue home aspirin/statin/imdur -midodrine held, prn IV BP meds -pt/ot -CM for placement needs -ppx: heparin full code Time Spent With Patient Time: Total time spent is greater than 50% in coordination of care (as documented) at patient's floor/unit and/or counseling patient: QUALITY VTE Deep Vein Thrombosis/Pulmonary Embolism Present on Admission: No
[2020-08-29 07:41] LABS: Basophils # (Auto) 0.05 K/mcL (0.00-0.20); Basophils % (Auto) 0.6 % (0.0-2.0); Eosinophils # (Auto) 0.16 K/mcL (0.00-0.70); Eosinophils % (Auto) 1.8 % (0.0-7.0); Lymphocytes # (Auto) 1.01 K/mcL (1.50-4.80); Lymphocytes % (Auto) 11.5 % (15.0-49.0); Mean Cell Volume 98.9 fL (80.0-100.0); Mean Corpuscular HGB Conc 29.7 g/dL (31.0-36.0); Monocytes # (Auto) 0.95 K/mcL (0.10-0.90); Monocytes % (Auto) 10.8 % (1.0-12.0); Neutrophils % (Auto) 75.3 % (38.0-78.0); Platelet Count 287 K/mcL (140-440); RBC 3.74 M/mcL (4.50-5.90); Red Cell Distribution Width 13.2 % (11.5-14.5); WBC 8.8 K/mcL (4.5-11.0)
[2020-08-29] MEDS: INSULIN LISPRO 1 UNIT/0.01 ML UNIT SQ SCH ×4 (08:08→19:41)
[2020-08-29] MEDS: GABAPENTIN 300 MG CAPSULE PO SCH ×2 (08:09→19:38)
[2020-08-29] MEDS: DOCUSATE SODIUM 100 MG CAPSULE PO SCH ×2 (08:09→19:38)
[2020-08-29] MEDS: ISOSORBIDE MONONITRATE 30 MG TAB.XL.24H PO SCH (08:09)
[2020-08-29] MEDS: ASPIRIN 81 MG TAB.CHEW PO SCH (08:09)
[2020-08-29] MEDS: HEPARIN 5,000 UNIT/ML VIAL SQ SCH ×2 (08:09→19:39)
[2020-08-29] MEDS: ATORVASTATIN 20 MG TABLET PO SCH (08:09)
[2020-08-29 08:35] LABS: ALT/SGPT 17 U/L (<40); AST/SGOT 40 U/L (<40); Albumin 2.8 gm/dL (3.2-5.2); Albumin/Globulin Ratio 0.7 (1.0-2.3); Alkaline Phosphatase 119 U/L (39-117); Bilirubin,Direct < 0.2 mg/dL (0-0.3); Bilirubin,Total 0.2 mg/dL (0.1-1.0); Blood Urea Nitrogen 41 mg/dL (8-23); Calcium 8.7 mg/dL (8.6-10.4); Carbon Dioxide 24 mmol/L (22-30); Chloride 101 mmol/L (96-108); Globulin 4.2 gm/dL (2.2-3.7); Glomerular Filtration Rate 19; Glucose 94 mg/dL (70-105); Lactate Dehydrogenase 346 U/L (135-225); Phosphorous 4.7 mg/dL (2.5-4.5); Triglycerides 137 mg/dL (<150); Uric Acid 8.6 mg/dL (2.5-8.0)
[2020-08-29] MEDS: 0.9 % SODIUM CHLORIDE 1,000 ML IV SCH ×4 (08:55→23:08)
--- NOTE | 2020-08-29 11:57 | Cat Scan Report ---
CLINICAL INFORMATION: Bilateral hydronephrosis COMPARISON: Abdomen and pelvic CT 11/24/[address] 08/04/2018 TECHNIQUE: IV and oral contrast were withheld per standard protocol. .625mm helical slices were obtained from the diaphragm through the subtrochanteric regions. Following reconstruction, 2.5 mm sagittal, coronal, and axial reformations were processed. Exam was reviewed in bone, soft tissue, and lung windows/algorithm. The exam was performed using radiation dose optimization techniques including, but not limited to, automated exposure control, adjustment of the mA and/or kV according to patient size and use of iterative reconstruction technique. FINDINGS: Lung bases show moderate left and small right pleural effusions - new from prior exam. On the left, this has has resulted in compressive subsegmental atelectasis of the posterior left lower lobe. The heart is mildly enlarged, but unchanged. Abdominal images show the noncontrasted liver, pancreas, both adrenal glands, spleen and aorta to be normal in size, configuration and attenuation without focal lesion. Gallbladder is surgically absent. Common bile duct is normal caliber. There is no free air. Small amount of ascites seen in the perihepatic two pelvic region. 3.8 cm simple cyst superior pole left kidney is stable 3 mm nonobstructing stone superior calyx right kidney is also noted. There is no obstructing stone. Moderate bilateral hydronephrosis/hydroureter to the level iliac crossing appreciated. In this region, there are now moderate adenopathy conglomerate which encases both ureters. A new large (10 cm x 7 cm conglomerate of retroperitoneal adenopathy in the retropancreatic, periaortic and pericaval regions appreciated. Old calcified granulomatous lymph nodes in the kody hepatis peripancreatic and periduodenal region are again seen. 4 cm partially calcified mesenteric mass in the anterior central false pelvis demonstrates long-term stability. Stomach, small and large bowel show mild symmetric dilatation compatible with mild ileus. There is mild ascites appreciated. SALES [employer]PERATIONS LEAD shunt catheter is in satisfactory position with the tip of the right false pelvis. Bone windows show no focal osseous lesion there is degenerative change in the lumbar spine IMPRESSION: 1. Large conglomerate of retroperitoneal adenopathy within the retropancreatic, periaortic and pericaval regions throughout the abdomen. There is also enlarged lymph nodes in both common internal iliac regions. Non-Hodgkin's lymphoma suspected. Suggest CT-guided biopsy for tissue 2. Both ureters are encased by adenopathy, at the iliac crossing, resulting in moderate bilateral hydroureter/hydronephrosis. 3. 4 cm partially calcified mesenteric mass in the mid abdomen demonstrate a long-term stability. This is likely old granulomatous reaction. Benign calcified granulomatous lymph nodes in the kody hepatis and peripancreatic region also demonstrate long-term stability. 4. Moderate left and small right pleural effusions new since resulting in subsegmental atelectasis. 5. Small amount of ascites likely related SALES [employer]PERATIONS LEAD shunt catheter. 6. Moderate edema in the subcutaneous fat throughout the abdomen and pelvis. Interpreted and Authenticated by: Eris Calix 08/29/20
--- NOTE | 2020-08-29 12:10 | General Surgery Consult Note ---
HPI Data of Consult Consult date: 08/29/20 Primary Care Provider: Eris Lane DO Family Provider: Patient is an 85-year-old male admitted with confusion and noted to have hydronephrosis with elevated creatinine and urinary retention. Patient does have history of bladder cancer as well as prostate cancer treated through urology Dr. Camejo in [facility]. Patient admitted for management and urologic consultation requested. Consult Narrative Patient Information: Note initiated : 08/29/20 at 12:02 pm Service Date, if different from initiated Date: [] Patient: Gio Abreu 85 y/o M admitted on 08/28/20 for confusion. Chief Complaint: [] Chief complaint: Renal failure Reason for consult: Hydronephrosis with renal failure noted on ultrasound and labs cc:: CC: Stalin Londono Genitourinary Additional comments: History of prostate cancer questionably treated with r adiation and bladder cancer with cystoscopy, resection and mitomycin PFSH PFSH All Active Problems (Updated 08/28/20 @ 16:17 by Shmuel Spivey MD) Acute renal failure (Acute) Medicare annual wellness visit, subsequent (Acute) Edema of left lower extremity (Chronic) Left ankle pain (Chronic) Macular degeneration (Chronic) High cholesterol (Chronic) Personal history of malignant neoplasm of bladder (Chronic) Spondylosis without myelopathy or radiculopathy, lumbar region (Chronic) 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) use of opiate analgesic (Chronic) UTI (urinary tract infection) (Acute) Weakness (Acute) Left rib fracture (Acute) 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) Contracture of hand (Chronic) Numbness and tingling in both hands (Acute) NPH (normal pressure hydrocephalus) (Chronic) Prostate cancer (Chronic) Hypotension (Chronic) Hydrocephalus (Chronic) Ataxia (Acute) COPD (chronic obstructive pulmonary disease) (Chronic) CAD (coronary artery disease) (Chronic) 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) Diabetes mellitus type 2, controlled (Chronic) Pulmonary hypertension, primary (Chronic) Peripheral vascular disease (Chronic) PVD (peripheral vascular disease) with claudication (Chronic) Stable angina pectoris (Chronic) Metabolic syndrome X (Chronic) Overweight (BMI 25.0-29.9) (Chronic) Hyperlipidemia (Chronic) Hyperlipidemia associated with type 2 diabetes mellitus (Chronic) Trochanteric bursitis of left hip (Chronic) Urine incontinence (Chronic) Altered mental status (Acute) Dizziness (Chronic) Bladder cancer (Chronic) RODNEY (dyspnea on exertion) (Chronic) Hyperuricemia (Chronic) Chronic pain (Chronic) Low Back Pain (Chronic) 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 Intermittent confusion and poor memory, ataxia, and urinary incontinence with urgency, possibly secondary to NPH MR brain with contrast scheduled for August 03. This is been delayed a couple of times for various reasons. Refer to neurology today, may need neurosurgery referral also. We will try and set up home health nurse visits for him because he is not able to care for himself currently, and his one friend that helps him is overworked Anemia Stable. Mild-normochromic normocytic. No source of bleeding. Continue iron supplementation. Monitor CBCs. Ataxia Thought to be secondary to UTI, but more likely related to possible NPH Bladder cancer Confirmed by [facility]. Treated with instillations of mitomycin C. Blepharitis CAD (coronary artery disease) post CABG 2003 5 vessel Stress test 03/10/2019 showed no reversible ischemia, mild hypokinesis of the inferior wall, and a EF of 46%. Carotid bruit Carotid stenosis Bilateral carotid endarterectomies Carpal tunnel syndrome of right wrist Pain well controlled after steroid injection, as well as gabapentin, tramadol, and meloxicam. Tramadol dose is 50 mg, 1-2 times daily. HEALTH AND SAFETY ADVISOR reviewed, no concerns. We will contact home health about OT specifically working on his right hand Cellulitis Chest pain Rarely slight chest tightness. Has not used nitroglycerin. 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 We will do it at next visit. Diverticulosis of colon 08/18/2012 Dizziness Multifactorial, related to peripheral neuropathy, possibly orthostasis, although orthostatics were negative today. We will wean off of fludrocortisone 0.025 mg daily Continue fluid intake of 3-4 bottles of water per day Start midodrine 5 mg 3 times daily Continue to monitor blood pressure at home RODNEY (dyspnea on exertion) Occasionally Erectile dysfunction Patient okay for possible procedures with urology if desired, but he should not take Viagra or other ED medications due to low blood pressures and current use of isosorbide. Exudative senile macular degeneration of retina OD>OS Facet arthropathy 08/25/14-[place] Gout Hematuria High cholesterol Hydrocephalus MRI with contrast pending for further characterization of possible NPH Referred to neurology for help with work-up, but may need neurosurgery for treatment Hyperlipidemia Restart Lipitor 20 mg daily Hyperlipidemia associated with type 2 diabetes mellitus Hypertension, essential Elevated today. Takes only isosorbide. Fludrocortisone for hypotension was just stopped a couple of weeks ago. Goal less than 150/90. Continue monitoring at home. Let me know if not below goal. Hyperuricemia Hypotension No longer taking fludrocortisone. No longer having hypotensive episodes. Hypothyroidism Has been well controlled on Synthroid 100 mcg daily Check TSH halfway (current) use of opiate analgesic Low Back Pain Macular degeneration Mallet finger of right hand Likely permanent deformity now. Patient did not use finger brace as recommended. He also did not follow-up with Dr. Michele. Medicare annual wellness visit, subsequent Metabolic syndrome X NPH (normal pressure hydrocephalus) Status post ROVING TE[employer]ORAT[employer] shunt with mild improvement of symptoms. Continues to have dizziness and ataxia. Explained to patient that we may not be able to improve his symptoms completely. Trial of meclizine Patient should use a walker at all times. Patient may follow-up with Dr. Vega as needed Numbness and tingling in both hands Possibly secondary to peripheral neuropathy secondary to diabetes Will check TSH, B12, folate Osteoarthritis of spine Overweight (BMI 25.0-29.9) Peripheral vascular disease Personal history of malignant neoplasm of bladder Prostate cancer New diagnosis based on pathology of shavings from TURP Watch and wait approach, per urology. Pseudophakia Pulmonary hypertension, primary PVD (peripheral vascular disease) with claudication Follows with Dr. Ho Continue aspirin and statin Retinal detachment 10/24/14-[place] Spinal stenosis of lumbar region 08/25/14-[place] Spondylosis without myelopathy or radiculopathy, lumbar region Stable angina pectoris Trochanteric bursitis of left hip Steroid injection today. See procedure note for details. Tolerated well. Tubular adenoma Urine incontinence Secondary to recent TURP. But possible NPH may be contributing Myrbetriq is helping. Patient wears depends now. He was referred for pelvic floor physical therapy by urology. UTI (urinary tract infection) Completed course of Macrobid Check urine dipstick and culture today UTI (urinary tract infection) Surgical History Abnormal cystoscopy 02/11/2018 TURBT. Urethral stricture. Mitomycin-C. Dr. Ranulfo Camejo. History of carotid endarterectomy Left, right done 11/23/2012 w/Vascu-Guard patch angioplasty History of cataract surgery Bilateral History of cholecystectomy History of colonoscopy 07/28/2012 Dr. Mendez Result: Tubular Adenoma History of coronary artery bypass graft 2004 5 bypass grafts History of esophagogastroduodenoscopy (07/15/17) 07/26/2012 No abnormalities found. 07/15/17 Mild Schatzki ring. History of hernia repair History of surgery LESI #2 L2-3 w/o sed 08/29/201404/22 LESI #1 L2-3 w/o sed 04/18/1409/20 LESI #1 L2-3 w/o sed 09/28/201305/21 LESI #3 L2-3 w/o sed 05/18/1304/21 LESI #2 L3-4 w/o sed 04/19/201303/21 LESI #1, L3-4 03/24/13 w/o sed 05/20 VI #2 w/cath w/o sed 05/19/201204/20 VI #1 w/cath w/o sed 05/06/2012 History of transurethral resection of prostate Status post lumbar spinal fusion Family History Brother Diabetes mellitus Cardiac disease Father Diabetes mellitus Heart failure Cerebrovascular accident at age 84 Mother Acute myocardial infarction Passed at age 74 Uncle Type 2 diabetes mellitus Social History household members: alone housing: house lives independently: Yes marital status: 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 smoking status: Never smoker alcohol intake frequency: former alcohol drinker substance use type: does not use MEDS/ALLERGIES Home Medications and Allergies Home Medications Medication Instructions Recorded Confirmed Type omega-3 fatty acids 500 mg capsule 1,000 mg PO QDAY cap 01/18/15 08/28/20 History aspirin 325 mg tablet 325 mg PO QDAY 09/29/17 08/28/20 History nitroglycerin 0.4 mg sublingual 0.4 mg SUBLINGUAL Q5-15M PRN #25 10/05/18 08/28/20 Rx tablet tab cyanocobalamin (vitamin B-12) 2,500 mcg PO QDAY 05/20/19 08/28/20 History 2,500 mcg tablet diphenhydramine 25 1 tab PO QHS 05/20/19 08/28/20 History mg-acetaminophen 500 mg tablet echinacea 380 mg capsule 760 mg PO ONCE cap 05/20/19 08/28/20 History glucosamine-chondroitin 250 mg-200 1 tab PO QDAY tab 05/20/19 08/28/20 History mg tablet melatonin 5 mg capsule 5 - 10 mg PO QHS cap 05/20/19 08/28/20 History multivitamin 1 tab PO QAM 05/20/19 08/28/20 History vit C 250 mg-vit E 90 mg-zinc 40 1 tab PO QDAY cap 05/20/19 08/28/20 History mg-copper 1 [id number] capsule metformin 500 mg tablet 500 mg PO BID #180 tab 02/29/20 08/28/20 Rx isosorbide mononitrate 30 mg 15 mg PO QDAY #45 tab 05/16/20 08/28/20 Rx tablet,extended release 24 hr meloxicam 7.5 mg tablet 7.5 mg PO QDAY #60 tab 05/31/20 08/28/20 Rx tramadol 50 mg tablet 50 mg PO BID PRN #60 tab 05/31/20 08/28/20 Rx atorvastatin 20 mg tablet 20 mg PO QDAY #90 tab 06/07/20 08/28/20 Rx gabapentin 300 mg capsule 300 mg PO BID #180 cap 06/07/20 08/28/20 Rx levothyroxine 100 mcg tablet 100 mcg PO QDAY #90 tab 07/17/20 08/28/20 Rx midodrine 10 mg tablet 5 mg PO TID #45 tab 08/08/20 08/28/20 Rx Allergies Allergy/AdvReac Type Severity Reaction Status Date / Time No Known Drug Allergies Allergy Verified 08/28/20 11:13 Physical Examination Vital Signs Vital signs: Temp Pulse Resp BP Pulse Ox 98.5 F 96 H 18 186/93 94 08/29/20 08:00 08/29/20 08:00 08/29/20 08:00 08/29/20 08:00 08/29/20 08:00 Additional Findings Additional exam: Patient well-developed white male comfortable with Meredith catheter in place seemingly oriented to time place and person Patient has minimal CVA tenderness Mild abdominal obesity HEENT within normal limits Chest normal diaphragmatic excursion normal male external genitalia with Meredith catheter in place draining clear urine Results Labs Result diagrams: 08/29/20 06:28 08/29/20 06:27 Labs: Abnormal lab results 08/28/20 08/28/20 08/28/20 Range/Units 11:46 11:46 16:28 RBC 3.68 L (4.50-5.90) M/mcL Hgb 11.0 L (13.5-16.5) g/dL Hct 36.0 L (41.0-55.0) % MCHC 30.6 L (31.0-36.0) g/dL Lymph % (Auto) 10.6 L (15.0-49.0) % Lymph # (Auto) 0.75 L (1.50-4.80) K/mcL Runnels # (Auto) (0.10-0.90) K/mcL Carbon Dioxide 34 H (22-30) mmol/L BUN 43 H (8-23) mg/dL Creatinine 2.8 H (0.7-1.2) mg/dL Uric Acid (2.5-8.0) mg/dL Phosphorus (2.5-4.5) mg/dL GGT (8-61) U/L AST 43 H (<40) U/L Alkaline Phosphatase 123 H (39-117) U/L Lactate Dehydrogenase (135-225) U/L Albumin (3.2-5.2) gm/dL Globulin 3.8 H (2.2-3.7) gm/dL Albumin/Globulin Ratio 0.8 L (1.0-2.3) Urine Appearance Hazy A (Clear) 08/29/20 08/29/20 Range/Units 06:27 06:28 RBC 3.74 L (4.50-5.90) M/mcL Hgb 11.0 L (13.5-16.5) g/dL Hct 37.0 L (41.0-55.0) % MCHC 29.7 L (31.0-36.0) g/dL Lymph % (Auto) 11.5 L (15.0-49.0) % Lymph # (Auto) 1.01 L (1.50-4.80) K/mcL Runnels # (Auto) 0.95 H (0.10-0.90) K/mcL Carbon Dioxide (22-30) mmol/L BUN 41 H (8-23) mg/dL Creatinine 2.9 H (0.7-1.2) mg/dL Uric Acid 8.6 H (2.5-8.0) mg/dL Phosphorus 4.7 H (2.5-4.5) mg/dL GGT 67 H (8-61) U/L AST 40 H (<40) U/L Alkaline Phosphatase 119 H (39-117) U/L Lactate Dehydrogenase 346 H (135-225) U/L Albumin 2.8 L (3.2-5.2) gm/dL Globulin 4.2 H (2.2-3.7) gm/dL Albumin/Globulin Ratio 0.7 L (1.0-2.3) Urine Appearance (Clear) Diabetes panel 08/28/20 08/29/20 Range/Units 11:46 06:27 Sodium 141 141 (133-145) mmol/L Potassium 4.2 4.2 (3.3-5.1) mmol/L Chloride 97 101 (96-108) mmol/L Carbon Dioxide 34 H 24 (22-30) mmol/L BUN 43 H 41 H (8-23) mg/dL Creatinine 2.8 H 2.9 H (0.7-1.2) mg/dL Glucose 104 94 (70-105) mg/dL Calcium 9.0 8.7 (8.6-10.4) mg/dL AST 43 H 40 H (<40) U/L ALT 19 17 (<40) U/L Alkaline Phosphatase 123 H 119 H (39-117) U/L Total Protein 7.0 7.0 (5.9-8.4) gm/dL Albumin 3.2 2.8 L (3.2-5.2) gm/dL Triglycerides 137 (<150) mg/dL Calcium panel 08/28/20 08/29/20 Range/Units 11:46 06:27 Calcium 9.0 8.7 (8.6-10.4) mg/dL Phosphorus 4.7 H (2.5-4.5) mg/dL Albumin 3.2 2.8 L (3.2-5.2) gm/dL Pituitary panel 08/28/20 08/29/20 Range/Units 11:46 06:27 Sodium 141 141 (133-145) mmol/L Potassium 4.2 4.2 (3.3-5.1) mmol/L Chloride 97 101 (96-108) mmol/L Carbon Dioxide 34 H 24 (22-30) mmol/L BUN 43 H 41 H (8-23) mg/dL Creatinine 2.8 H 2.9 H (0.7-1.2) mg/dL Glucose 104 94 (70-105) mg/dL Calcium 9.0 8.7 (8.6-10.4) mg/dL Adrenal panel 08/28/20 08/29/20 Range/Units 11:46 06:27 Sodium 141 141 (133-145) mmol/L Potassium 4.2 4.2 (3.3-5.1) mmol/L Chloride 97 101 (96-108) mmol/L Carbon Dioxide 34 H 24 (22-30) mmol/L BUN 43 H 41 H (8-23) mg/dL Creatinine 2.8 H 2.9 H (0.7-1.2) mg/dL Glucose 104 94 (70-105) mg/dL Calcium 9.0 8.7 (8.6-10.4) mg/dL Total Bilirubin 0.2 0.2 (0.1-1.0) mg/dL AST 43 H 40 H (<40) U/L ALT 19 17 (<40) U/L Alkaline Phosphatase 123 H 119 H (39-117) U/L Total Protein 7.0 7.0 (5.9-8.4) gm/dL Albumin 3.2 2.8 L (3.2-5.2) gm/dL All other labs normal. A/P Narrative A/P Narrative: Assessment: History of prostate cancer and bladder cancer with bilateral hydronephrosis Renal failure with unknown etiology and now presently with bladder decompression with Meredith catheter in place and initial nonresponsive serum creatinine Plan: Proceed with repeat PSA and urine cytology as well as more definitive anatomic etiologies with CT stone study. Continue bladder decompression and medical management at this point and continue to follow for further evaluation as indicated Time Spent With Patient Time: Total time spent is greater than 50% in coordination of care (as documented) at patient's floor/unit and/or counseling patient:
[2020-08-29] MEDS: hydrALAZINE 20 MG/ML VIAL IV PRN (16:38)
[2020-08-29] MEDS: TAMSULOSIN 0.4 MG CAPSULE PO SCH (19:38)
[2020-08-29] MEDS: diphenhydrAMINE 25 MG CAPSULE PO SCH (19:38)
[2020-08-29] MEDS: MELATONIN 3 MG TABLET PO SCH (19:38)
[2020-08-29] MEDS: ACETAMINOPHEN 500 MG TABLET PO SCH (19:39)
[2020-08-30] MEDS: 0.9 % SODIUM CHLORIDE 1,000 ML IV SCH ×2 (03:21→08:51)
[2020-08-30] MEDS: 0.9 % SODIUM CHLORIDE 10 ML SYRINGE IV SCH ×3 (04:04→20:21)
[2020-08-30] MEDS: INSULIN LISPRO 1 UNIT/0.01 ML UNIT SQ SCH ×4 (07:02→20:18)
[2020-08-30] MEDS: LEVOTHYROXINE 100 MCG TABLET PO SCH ×2 (07:02→08:41)
--- NOTE | 2020-08-30 07:48 | General Surgery Progress Note ---
SUBJECTIVE Subjective Patient information: Note initiated : 08/30/20 at 7:44 am Service Date, if different from initiated Date: [] Patient: Gio Abreu 85 y/o M admitted on 08/28/20 for confusion. Chief Complaint: [] Interval history: Patient remains comfortable today with no new symptoms and urine remains relatively clear Review of CT scan reveals retroperitoneal adenopathy and likely etiology of his bilateral obstruction Constitutional Vitals: Vital Signs Temp Pulse Resp BP Pulse Ox 98.1 F 99 H 22 140/80 92 08/30/20 04:01 08/30/20 04:01 08/30/20 04:01 08/30/20 04:01 08/30/20 04:01 Period Temp Pulse Resp BP Sys/Shelley Pulse Ox Last 24 Hr 96.3 F-98.5 F 90-99 18-24 107-186/62-93 90-94 Intake and Output 08/29/20 08/30/20 08/30/20 21:59 05:59 13:59 Intake Total 1240 300 Output Total 400 500 Balance 840 -200 Weight 200 lb 4.8 oz Intake & Output: Intake & Output 08/29/20 08/30/20 08/30/20 21:59 05:59 13:59 Intake Total 1240 300 Output Total 400 500 Balance 840 -200 Weight 200 lb 4.8 oz Intake: IV 1000 Sodium Chloride 0.9% 1,000 ml @ 1000 100 mls/hr IV .Q10H ASHU Rx#: [id number] Oral 240 300 Output: Urine Catheter Amount 400 500 Other: Meal Dinner Percent of Meal Consumed 100% Urine Appearance Cloudy Urine Color Dark Yellow Stool Size Large Stool Color Brown Stool Consistency Formed # Bowel Movements 1 Additional findings Additional findings: Patient comfortable with no new findings of back pain or abdominal tenderness Meredith cath remains draining well Patient has no evidence of peripheral edema presently A/P Narrative A/P Narrative: Assessment Renal failure questionably stabilize labs not back this morning Bilateral hydronephrosis likely secondary to increasing retroperitoneal adenopathy and consistent with lymphoma rather than recurrent bladder cancer or prostate cancer however would need interventional radiology to biopsy for definitive diagnosis Pleural effusions questionably new Plan: Suggest interventional radiology for retroperitoneal mass biopsy and continue Meredith catheter drainage pending response to same with improved renal function Continue to recheck labs and medical resuscitation as able per medical service Time Spent With Patient Time: Total time spent is greater than 50% in coordination of care (as documented) at patient's floor/unit and/or counseling patient:
--- NOTE | 2020-08-30 07:49 | Internal Med Progress Note ---
SUBJECTIVE Subjective Patient information: Note initiated : 08/30/20 at 7:44 am Service Date, if different from initiated Date: [] Patient: Gio Abreu 85 y/o M admitted on 08/28/20 for confusion. Chief Complaint: [] Interval history: History of present illness: Mr. Abreu is a 85 year old M Presents to the ED after several days of increasing weakness and intermittent confusion although he has hydrocephalus most notably is also had some twitching in his arm. In the ED with remarkable for acute kidney injury. Also found to be retaining urine and had 540cc remaining in bladder after small urination. He also had chest x-ray which showed a little bit of atelectasis and he had a CT brain which showed the [employer]POR[employer]OCIATE shunt in satisfactory position functional Question of poor oral intake recently. He lives by himself but has somebody stay with him at night. 08/29 Poor sleep but otherwise feeling better. No new complaints. Creatinine did not improve. Discussed case with Dr. Mcneil and will see the patient KUB pending. 08/30 CT findings suspicious for lymphoma and encasing the ureters. Creatinine bumped slightly today.. Patient has no new complaints today. Review of Systems: denies headache/fever/chills/nausea/vomiting/chest or abdominal pain/cough/dyspnea/diarrhea. Otherwise see above. Constitutional Vitals: Vital Signs Temp Pulse Resp BP Pulse Ox 98.1 F 99 H 22 140/80 92 08/30/20 04:01 08/30/20 04:01 08/30/20 04:01 08/30/20 04:01 08/30/20 04:01 Period Temp Pulse Resp BP Sys/Shelley Pulse Ox Last 24 Hr 96.3 F-98.5 F 90-99 18- 107-186/62-93 90-94 Intake and Output 08/29/20 08/30/20 08/30/20 21:59 05:59 13:59 Intake Total 1240 300 Output Total 400 500 Balance 840 -200 Weight 90.855 kg Intake & Output: Intake & Output 08/29/20 08/30/20 08/30/20 21:59 05:59 13:59 Intake Total 1240 300 Output Total 400 500 Balance 840 -200 Weight 90.855 kg Intake: IV 1000 Sodium Chloride 0.9% 1,000 ml @ 1000 100 mls/hr IV .Q10H [facility] Rx#: [id number] Oral 240 300 Output: Urine Catheter Amount 400 500 Other: Meal Dinner Percent of Meal Consumed 100% Urine Appearance Cloudy Urine Color Dark Yellow Stool Size Large Stool Color Brown Stool Consistency Formed # Bowel Movements 1 Exam: General: Alert, Awake, No acute Distress Eyes/N/T: EOMI, Head/Neck: neck supple, CV: RRR, No murmurs, Pulm: Clear b/l, no wheezing/rhonchi/rales Abd: soft, nontender, +BS x4 Ext: no clubbing/cyanosis/ chronic LLE edema - at 1+ Neuro: Alert, no focal deficits, moves all extremities, Skin: warm/dry OBJ DATA Labs CBC & Chem 7: 08/29/20 06:28 08/30/20 05:44 Labs: Abnormal Lab Results 08/29/20 08/29/20 08/28/20 06:28 06:27 16:28 RBC 3.74 L Hgb 11.0 L Hct 37.0 L MCHC 29.7 L Lymph % (Auto) 11.5 L Lymph # (Auto) 1.01 L [place] # (Auto) 0.95 H Carbon Dioxide BUN 41 H Creatinine 2.9 H Uric Acid 8.6 H Phosphorus 4.7 H GGT 67 H AST 40 H Alkaline Phosphatase 119 H Lactate Dehydrogenase 346 H Albumin 2.8 L Globulin 4.2 H Albumin/Globulin Ratio 0.7 L Urine Appearance Hazy A 08/28/20 08/28/20 11:46 11:46 RBC 3.68 L Hgb 11.0 L Hct 36.0 L MCHC 30.6 L Lymph % (Auto) 10.6 L Lymph # (Auto) 0.75 L [place] # (Auto) Carbon Dioxide 34 H BUN 43 H Creatinine 2.8 H Uric Acid Phosphorus GGT AST 43 H Alkaline Phosphatase 123 H Lactate Dehydrogenase Albumin Globulin 3.8 H Albumin/Globulin Ratio 0.8 L Urine Appearance Meds: Medications Acetaminophen (Acetaminophen 325 Mg Tablet) 650 mg PO Q6HP PRN PRN Reason: PAIN/FEVER > 101 Acetaminophen (Acetaminophen 500 Mg Tablet) 500 mg PO [facility] Last Admin: 08/29/20 19:39 Dose: 500 mg Documented by: Hydrocodone Bitart/Acetaminophen (Hydrocodone/Apap 5/325mg Tablet) 1 tab PO Q4HP PRN PRN Reason: PAIN LEVEL 3-6 Albuterol/Ipratropium (Ipratropium/Albuterol 3 Ml Ampul.Neb) 3 ml NEB Q4HP PRN PRN Reason: Shortness Of Breath Aspirin (Aspirin 81 Mg Tab.Chew) 81 mg PO QDAY [facility] Last Admin: 08/29/20 08:09 Dose: 81 mg Documented by: Atorvastatin Calcium (Atorvastatin 20 Mg Tablet) 20 mg PO QDAY [facility] Last Admin: 08/29/20 08:09 Dose: 20 mg Documented by: Dextrose (Dextrose 50% 50 Ml Vial) 0 ml IV UD PRN PRN Reason: Hypoglycemia Diagnostic Test (Pha) (Accu-Chek 1 Each Strip) 1 each FS [facility] Last Admin: 08/30/20 07:01 Dose: 1 each Documented by: Diphenhydramine HCl (Diphenhydramine 25 Mg Capsule) 25 mg PO HS [facility] Last Admin: 08/29/20 19:38 Dose: 25 mg Documented by: Docusate Sodium (Docusate Sodium 100 Mg Capsule) 100 mg PO BID [facility] Last Admin: 08/29/20 19:38 Dose: 100 mg Documented by: Gabapentin (Gabapentin 300 Mg Capsule) 300 mg PO BID [facility] Last Admin: 08/29/20 19:38 Dose: 300 mg Documented by: Glucose (Dextrose 31 Gm Oral.Susp) 15 gm PO PRN PRN PRN Reason: Hypoglycemia Hydralazine HCl (Hydralazine 20 Mg/Ml Vial) 0 mg IV Q2HP PRN PRN Reason: Hypertension Last Admin: 08/29/20 16:38 Dose: 10 mg Documented by: Potassium Chloride 40 meq/ (Dextrose) 520 mls @ 130 mls/hr IV UD PRN PRN Reason: Potassium < 3 Magnesium Sulfate (Magnesium Sulfate) 2 gm in 50 mls @ 50 mls/hr IV UD PRN PRN Reason: Magnesium </= 1.6 Sodium Chloride (Sodium Chloride 0.9%) 1,000 mls @ 100 mls/hr IV .Q10H [facility] Last Admin: 08/30/20 03:21 Dose: Not Given Documented by: Insulin Human Lispro (Insulin Lispro 1 Unit/0.01 Ml Unit) 0 unit SQ [facility]; Protocol Last Admin: 08/30/20 07:02 Dose: Not Given Documented by: Isosorbide Mononitrate (Isosorbide Mononitrate 30 Mg Tab.Xl.24h) 15 mg PO QDAY [facility] Last Admin: 08/29/20 08:09 Dose: 15 mg Documented by: Labetalol HCl (Labetalol 5 Mg/Ml Ml) 0 mg IV Q2HP PRN PRN Reason: Hypertension Last Admin: 08/29/20 09:03 Dose: 20 mg Documented by: Levothyroxine Sodium (Levothyroxine 100 Mcg Tablet) 100 mcg PO QAMAC [facility] Last Admin: 08/30/20 07:02 Dose: Not Given Documented by: Melatonin (Melatonin 3 Mg Tablet) 6 - 9 mg PO QHS [facility] Last Admin: 08/29/20 19:38 Dose: 6 mg Documented by: Nitroglycerin (Nitroglycerin 0.4 Mg Tab.Subl) 0.4 mg SL Q5M PRN PRN Reason: Chest Pain Ondansetron HCl (Ondansetron 4 Mg/2 Ml Vial) 4 mg IV Q4HP PRN PRN Reason: Nausea And Vomiting Last Admin: 08/29/20 22:39 Dose: 4 mg Documented by: Polyethylene Glycol (Polyethylene Glycol 3350 17 Gm Packet) 17 gm PO DAILYP PRN PRN Reason: Constipation Potassium Chloride (Potassium Chloride 20 Meq Tablet) 40 meq PO UD PRN PRN Reason: Potssium is 3-3.5 Potassium Chloride (Potassium Chloride 20 Meq Tablet) 40 meq PO UD PRN PRN Reason: Potassium < 3 Senna (Sennosides 1 Tablet) 2 tab PO DAILYP PRN PRN Reason: Constipation Sodium Chloride (0.9 % Sodium Chloride 10 Ml Syringe) 10 ml IV Q8 [facility] Last Admin: 08/30/20 04:04 Dose: Not Given Documented by: Tamsulosin HCl (Tamsulosin 0.4 Mg Capsule) 0.4 mg PO HS [facility] Last Admin: 08/29/20 19:38 Dose: 0.4 mg Documented by: Tramadol HCl (Tramadol 50 Mg Tablet) 50 mg PO BIDP PRN; Protocol PRN Reason: pain A/P Narrative A/P Narrative: A: 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: prerenal + ureteral obstruction (severe adenopathy encasing ureters): -Cr 2.8>2.9>3.0 *Obstructive Uropathy with b/l Hydronephrosis/hydroureter: *UR: s/p eddy in ED -h/o TURP one year ago *LAD: retroperitoneal/pelvic -suspicious for lymphoma, biospy pending *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[employer] ASSOCIATE shunt: *CAD w/cabg: *Hypothyroidism: *Hyper/Hypo-TN: Recently started on midodrine for low blood outpt, elevated during admission *HTN: P: -Urology following, ?b/l stents -Tissue Biopsy results pending -hold home meloxicam -hold metformin, SSI -Continue home aspirin/statin/imdur -midodrine held, prn IV BP meds -pt/ot -CM for placement needs -ppx: heparin full code Time Spent With Patient Time: Total time spent is greater than 50% in coordination of care (as documented) at patient's floor/unit and/or counseling patient: QUALITY VTE Deep Vein Thrombosis/Pulmonary Embolism Present on Admission: No
[2020-08-30 07:56] LABS: ALT/SGPT 14 U/L (<40); AST/SGOT 33 U/L (<40); Albumin 2.9 gm/dL (3.2-5.2); Albumin/Globulin Ratio 0.8 (1.0-2.3); Alkaline Phosphatase 102 U/L (39-117); Bilirubin,Direct < 0.2 mg/dL (0-0.3); Bilirubin,Total 0.2 mg/dL (0.1-1.0); Blood Urea Nitrogen 42 mg/dL (8-23); Calcium 8.4 mg/dL (8.6-10.4); Carbon Dioxide 25 mmol/L (22-30); Chloride 100 mmol/L (96-108); Globulin 3.8 gm/dL (2.2-3.7); Glomerular Filtration Rate 18; Glucose 114 mg/dL (70-105); Lactate Dehydrogenase 314 U/L (135-225); Phosphorous 5.1 mg/dL (2.5-4.5); Triglycerides 111 mg/dL (<150); Uric Acid 8.6 mg/dL (2.5-8.0)
[2020-08-30] MEDS: ASPIRIN 81 MG TAB.CHEW PO SCH (08:40)
[2020-08-30] MEDS: ISOSORBIDE MONONITRATE 30 MG TAB.XL.24H PO SCH (08:40)
[2020-08-30] MEDS: ATORVASTATIN 20 MG TABLET PO SCH (08:41)
[2020-08-30] MEDS: DOCUSATE SODIUM 100 MG CAPSULE PO SCH ×2 (08:41→20:19)
[2020-08-30] MEDS: GABAPENTIN 300 MG CAPSULE PO SCH ×2 (08:41→20:19)
[2020-08-30] MEDS ORDERED: MIDAZOLAM 2 MG/2 ML VIAL IV ONE (10:25)
[2020-08-30] MEDS ORDERED: fentaNYL 100 MCG/2 ML VIAL IV ONE (10:25)
[2020-08-30] MEDS ORDERED: LIDOCAINE 1% 20 ML VIAL SQ ONE (11:21)
--- NOTE | 2020-08-30 12:26 | Cat Scan Report ---
CLINICAL INFORMATION: Large conglomerate of retroperitoneal adenopathy in the periaortic and pericaval region of the abdomen - new from prior CT. 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 He understood and wished to proceed. He was medicated prior to and during the procedure with Versed and fentanyl given in divided dosages. Please see medication for dosages. Blood pressure and pulse oximeter were monitored and he maintained consciousness during the procedure. Total sedation time 30 minutes. With the patient in prone position, the retroperitoneal adenopathy conglomerate was first CT localized at the renal level. Skin overlying the adenopathy, in the right paraspinous region, was marked, prepped and locally anesthetized with 1% lidocaine using a 25-gauge spinal needle. A 17-gauge Temno needle was then placed under CT guidance into the posterior aspect of the adenopathy conglomerate. Through this guide, a 18-gauge Temno needle was used to obtain four core passes. Samples were sent in formalin to pathology and the needle was washed in normal sterile saline between each pass. Postprocedure scanning shows minimal air along the needle tract as expected. There is no hemorrhage or other complication. IMPRESSION: CT-guided core biopsy of retroperitoneal adenopathy conglomerate. No apparent complication. Pathology pending Interpreted and Authenticated by: Eris Calix 08/30/20
--- NOTE | 2020-08-30 12:35 | General Surgery Progress Note ---
SUBJECTIVE Subjective Patient information: Note initiated : 08/30/20 at 12:31 pm Service Date, if different from initiated Date: [] Patient: Gio Abreu 85 y/o M admitted on 08/28/20 for confusion. Chief Complaint: [] Interval history: Patient now returned from CT biopsy and results still pending but resting comfortably. Labs returned with creatinine progression and consideration for further intervention for renal preservation indicated Constitutional Vitals: Vital Signs Temp Pulse Resp BP Pulse Ox 97.5 F 100 H 14 140/83 93 08/30/20 08:00 08/30/20 10:08 08/30/20 10:08 08/30/20 08:00 08/30/20 10:08 Period Temp Pulse Resp BP Sys/Shelley Pulse Ox Last 24 Hr 96.3 F-98.3 F 91-106 14-24 107-154/62-85 90-94 Intake and Output 08/29/20 08/30/20 08/30/20 21:59 05:59 13:59 Intake Total 1240 300 972 Output Total 400 500 Balance 840 -200 972 Weight 200 lb 4.8 oz Intake & Output: Intake & Output 08/29/20 08/30/20 08/30/20 21:59 05:59 13:59 Intake Total 1240 300 972 Output Total 400 500 Balance 840 -200 972 Weight 200 lb 4.8 oz Intake: IV 1000 972 Sodium Chloride 0.9% 1,000 ml @ 1000 972 100 mls/hr IV .Q10H [facility] Rx#: [id number] Oral 240 300 Output: Urine Catheter Amount 400 500 Other: Meal Dinner Percent of Meal Consumed 100% Urine Appearance Cloudy Uretheral ([place]eredith) Clear Urine Color Dark Yellow Uretheral (Meredith) Light [place]anca Stool Size Large Stool Color Brown Stool Consistency Formed # Bowel Movements 1 Additional findings Additional findings: Patient significantly more sleepy but unchanged from this morning and urine remains clear in Meredith catheter No abdominal masses or tenderness noted A/P Narrative A/P Narrative: Assessment: progressive renal dysfunction with bilateral hydronephrosis likely secondary to progressing retroperitoneal adenopathy with tissue diagnosis pending Plan: Patient to have cystoscopy and bilateral stent placement under anesthesia tomorrow with risks and benefits explained for renal preservation Patient will have consent signed and will hopefully have tissue diagnosis for initiation of therapy within the next 24 to 48 hours Time Spent With Patient Time: Total time spent is greater than 50% in coordination of care (as documented) at patient's floor/unit and/or counseling patient:
[2020-08-30 16:38] LABS: ALT/SGPT 16 U/L (<40); AST/SGOT 34 U/L (<40); Albumin/Globulin Ratio 0.8 (1.0-2.3); Alkaline Phosphatase 104 U/L (39-117); Bilirubin,Total 0.2 mg/dL (0.1-1.0); Blood Urea Nitrogen 43 mg/dL (8-23); Calcium 9.4 mg/dL (8.6-10.4); Carbon Dioxide 24 mmol/L (22-30); Chloride 104 mmol/L (96-108); Globulin 3.6 gm/dL (2.2-3.7); Glomerular Filtration Rate 17; Glucose 109 mg/dL (70-105)
[2020-08-30] MEDS: HEPARIN 5,000 UNIT/ML VIAL SQ SCH (20:18)
[2020-08-30] MEDS: diphenhydrAMINE 25 MG CAPSULE PO SCH (20:19)
[2020-08-30] MEDS: ACETAMINOPHEN 500 MG TABLET PO SCH (20:19)
[2020-08-30] MEDS: TAMSULOSIN 0.4 MG CAPSULE PO SCH (20:19)
[2020-08-30] MEDS: MELATONIN 3 MG TABLET PO SCH (20:19)
[2020-08-31] MEDS: 0.9 % SODIUM CHLORIDE 10 ML SYRINGE IV SCH ×5 (06:32→22:00)
--- NOTE | 2020-08-31 07:17 | Internal Med Progress Note ---
SUBJECTIVE Subjective Patient information: Note initiated : 08/31/20 at 7:13 am Service Date, if different from initiated Date: [] Patient: Gio Abreu 85 y/o M admitted on 08/28/20 for confusion. Chief Complaint: [] Interval history: nterval history: History of present illness: Mr. Abreu is a 85 year old M Presents to the ED after several days of increasing weakness and intermittent confusion although he has hydrocephalus most notably is also had some twitching in his arm. In the ED with remarkable for acute kidney injury. Also found to be retaining urine and had 540cc remaining in bladder after small urination. He also had chest x-ray which showed a little bit of atelectasis and he had a CT brain which showed the [employer]END[employer] shunt in satisfactory position functional Question of poor oral intake recently. He lives by himself but has somebody stay with him at night. 08/29 Poor sleep but otherwise feeling better. No new complaints. Creatinine did not improve. Discussed case with Dr. Mcneil and will see the patient KUB pending. 08/30 CT findings suspicious for lymphoma and encasing the ureters. Creatinine bumped slightly today.. Patient has no new complaints today. 08/31 No overnight event or new complaints. Patient will undergo cystoscopy with bilateral stent placement today. No new complaints. Review of Systems: denies headache/fever/chills/nausea/vomiting/chest or abdominal pain/cough/dyspnea/diarrhea. Otherwise see above. Constitutional Vitals: Vital Signs Temp Pulse Resp BP Pulse Ox 98.2 F 100 H 20 135/86 91 08/31/20 03:28 08/31/20 03:28 08/31/20 03:28 08/31/20 03:28 08/31/20 03:28 Period Temp Pulse Resp BP Sys/Shelley Pulse Ox Last 24 Hr 97.5 F-99.7 F 95-106 14-24 119-152/70-88 90-96 Intake and Output 08/30/20 08/31/20 08/31/20 21:59 05:59 13:59 Intake Total 1370 337 Output Total 550 500 Balance 820 -163 Weight 94.211 kg Intake & Output: Intake & Output 08/30/20 08/31/20 08/31/20 21:59 05:59 13:59 Intake Total 1370 337 Output Total 550 500 Balance 820 -163 Weight 94.211 kg Intake: IV 1000 Sodium Chloride 0.9% 1,000 ml @ 1000 100 mls/hr IV .Q10H [facility] Rx#: [id number] Oral 370 337 Output: Urine Catheter Amount 550 500 Other: Meal Dinner Percent of Meal Consumed 75% Urine Appearance Clear Sediment Urine Color Bright Yellow Exam: General: Alert, Awake, No acute Distress Eyes/N/T: EOMI, Head/Neck: neck supple, CV: RRR, No murmurs, Pulm: Clear b/l, no wheezing/rhonchi/rales Abd: soft, nontender, +BS x4 Ext: no clubbing/cyanosis/ chronic mild LLE edema Neuro: Alert, no focal deficits, moves all extremities, Skin: warm/dry OBJ DATA Labs CBC & Chem 7: 08/30/20 13:24 08/30/20 13:24 Labs: Abnormal Lab Results 08/30/20 08/30/20 08/29/20 13:24 05:44 06:28 RBC 3.74 L Hgb 11.0 L Hct 37.0 L MCHC 29.7 L Lymph % (Auto) 11.5 L Lymph # (Auto) 1.01 L [place] # (Auto) 0.95 H Carbon Dioxide BUN 43 H 42 H Creatinine 3.1 H 3.0 H Glucose 109 H 114 H Uric Acid 8.6 H Calcium 8.4 L Phosphorus 5.1 H GGT AST Alkaline Phosphatase Lactate Dehydrogenase 314 H Albumin 3.0 L 2.9 L Globulin 3.8 H Albumin/Globulin Ratio 0.8 L 0.8 L Urine Appearance 08/29/20 08/28/20 08/28/20 06:27 16:28 11:46 RBC Hgb Hct MCHC Lymph % (Auto) Lymph # (Auto) [place] # (Auto) Carbon Dioxide 34 H BUN 41 H 43 H Creatinine 2.9 H 2.8 H Glucose Uric Acid 8.6 H Calcium Phosphorus 4.7 H GGT 67 H AST 40 H 43 H Alkaline Phosphatase 119 H 123 H Lactate Dehydrogenase 346 H Albumin 2.8 L Globulin 4.2 H 3.8 H Albumin/Globulin Ratio 0.7 L 0.8 L Urine Appearance Hazy A 08/28/20 11:46 RBC 3.68 L Hgb 11.0 L Hct 36.0 L MCHC 30.6 L Lymph % (Auto) 10.6 L Lymph # (Auto) 0.75 L [place] # (Auto) Carbon Dioxide BUN Creatinine Glucose Uric Acid Calcium Phosphorus GGT AST Alkaline Phosphatase Lactate Dehydrogenase Albumin Globulin Albumin/Globulin Ratio Urine Appearance Meds: Medications Acetaminophen (Acetaminophen 325 Mg Tablet) 650 mg PO Q6HP PRN PRN Reason: PAIN/FEVER > 101 Acetaminophen (Acetaminophen 500 Mg Tablet) 500 mg PO [facility] Last Admin: 08/30/20 20:19 Dose: 500 mg Documented by: Hydrocodone Bitart/Acetaminophen (Hydrocodone/Apap 5/325mg Tablet) 1 tab PO Q4HP PRN PRN Reason: PAIN LEVEL 3-6 Albuterol/Ipratropium (Ipratropium/Albuterol 3 Ml Ampul.Neb) 3 ml NEB Q4HP PRN PRN Reason: Shortness Of Breath Aspirin (Aspirin 81 Mg Tab.Chew) 81 mg PO QDAY [facility] Last Admin: 08/30/20 08:40 Dose: 81 mg Documented by: Atorvastatin Calcium (Atorvastatin 20 Mg Tablet) 20 mg PO QDAY [facility] Last Admin: 08/30/20 08:41 Dose: 20 mg Documented by: Dextrose (Dextrose 50% 50 Ml Vial) 0 ml IV UD PRN PRN Reason: Hypoglycemia Diagnostic Test (Pha) (Accu-Chek 1 Each Strip) 1 each FS [facility]S [facility] Last Admin: 08/30/20 20:18 Dose: 1 each Documented by: Diphenhydramine HCl (Diphenhydramine 25 Mg Capsule) 25 mg PO [facility] Last Admin: 08/30/20 20:19 Dose: 25 mg Documented by: Docusate Sodium (Docusate Sodium 100 Mg Capsule) 100 mg PO BID [facility] Last Admin: 08/30/20 20:19 Dose: 100 mg Documented by: Gabapentin (Gabapentin 300 Mg Capsule) 300 mg PO BID [facility] Last Admin: 08/30/20 20:19 Dose: 300 mg Documented by: Glucose (Dextrose 31 Gm Oral.Susp) 15 gm PO PRN PRN PRN Reason: Hypoglycemia Heparin Sodium (Porcine) (Heparin 5,000 Unit/Ml Vial) 5,000 unit SQ Q12 [facility] Last Admin: 08/30/20 20:18 Dose: Not Given Documented by: Hydralazine HCl (Hydralazine 20 Mg/Ml Vial) 0 mg IV Q2HP PRN PRN Reason: Hypertension Last Admin: 08/29/20 16:38 Dose: 10 mg Documented by: Potassium Chloride 40 meq/ (Dextrose) 520 mls @ 130 mls/hr IV UD PRN PRN Reason: Potassium < 3 Magnesium Sulfate (Magnesium Sulfate) 2 gm in 50 mls @ 50 mls/hr IV UD PRN PRN Reason: Magnesium </= 1.6 Insulin Human Lispro (Insulin Lispro 1 Unit/0.01 Ml Unit) 0 unit SQ [facility]; Protocol Last Admin: 08/30/20 20:18 Dose: Not Given Documented by: Isosorbide Mononitrate (Isosorbide Mononitrate 30 Mg Tab.Xl.24h) 15 mg PO QDAY [facility] Last Admin: 08/30/20 08:40 Dose: 15 mg Documented by: Labetalol HCl (Labetalol 5 Mg/Ml Ml) 0 mg IV Q2HP PRN PRN Reason: Hypertension Last Admin: 08/29/20 09:03 Dose: 20 mg Documented by: Levothyroxine Sodium (Levothyroxine 100 Mcg Tablet) 100 mcg PO QAMAC [facility] Last Admin: 08/30/20 08:41 Dose: 100 mcg Documented by: Melatonin (Melatonin 3 Mg Tablet) 6 - 9 mg PO QHS [facility] Last Admin: 08/30/20 20:19 Dose: 6 mg Documented by: Nitroglycerin (Nitroglycerin 0.4 Mg Tab.Subl) 0.4 mg SL Q5M PRN PRN Reason: Chest Pain Ondansetron HCl (Ondansetron 4 Mg/2 Ml Vial) 4 mg IV Q4HP PRN PRN Reason: Nausea And Vomiting Last Admin: 08/29/20 22:39 Dose: 4 mg Documented by: Polyethylene Glycol (Polyethylene Glycol 3350 17 Gm Packet) 17 gm PO DAILYP PRN PRN Reason: Constipation Potassium Chloride (Potassium Chloride 20 Meq Tablet) 40 meq PO UD PRN PRN Reason: Potssium is 3-3.5 Potassium Chloride (Potassium Chloride 20 Meq Tablet) 40 meq PO UD PRN PRN Reason: Potassium < 3 Senna (Sennosides 1 Tablet) 2 tab PO DAILYP PRN PRN Reason: Constipation Sodium Chloride (0.9 % Sodium Chloride 10 Ml Syringe) 10 ml IV Q8 [facility] Last Admin: 08/31/20 06:32 Dose: 10 ml Documented by: Tamsulosin HCl (Tamsulosin 0.4 Mg Capsule) 0.4 mg PO HS [facility] Last Admin: 08/30/20 20:19 Dose: 0.4 mg Documented by: Tramadol HCl (Tramadol 50 Mg Tablet) 50 mg PO BIDP PRN; Protocol PRN Reason: pain A/P Narrative A/P Narrative: A: 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: prerenal + ureteral obstruction (severe adenopathy encasing ureters): -Cr 2.8>2.9>3.0 *Obstructive Uropathy with b/l Hydronephrosis/hydroureter: *UR: s/p eddy in ED -h/o TURP one year ago *LAD: retroperitoneal/pelvic -suspicious for lymphoma, biospy pending *DM w/neuropathy: A1c 6.5 *NPH w/[employer]AL[employer] ATT[employer] shunt: *CAD w/cabg: *Hypothyroidism: *Hyper/Hypo-TN: Recently started on midodrine for low blood outpt, elevated beginning of admission P: -Urology following, pending procedure today -Tissue Biopsy results pending -hold home meloxicam -hold metformin, SSI -Continue home aspirin/statin/imdur -midodrine held, prn IV BP meds -pt/ot -CM for placement needs -ppx: heparin full code Time Spent With Patient Time: Total time spent is greater than 50% in coordination of care (as documented) at patient's floor/unit and/or counseling patient: QUALITY VTE Deep Vein Thrombosis/Pulmonary Embolism Present on Admission: No
[2020-08-31] MEDS: hydrALAZINE 20 MG/ML VIAL IV PRN (07:22)
[2020-08-31] MEDS: LEVOTHYROXINE 100 MCG TABLET PO SCH (07:26)
[2020-08-31] MEDS: INSULIN LISPRO 1 UNIT/0.01 ML UNIT SQ SCH ×4 (07:26→21:45)
[2020-08-31] MEDS ORDERED: ceFAZolin 2 GM in DEXTROSE 5% IN WATER 50 ML IV SCH (07:45)
[2020-08-31 08:11] LABS: Estimated Average Glucose(eAG) 140 mg/dL; Hemoglobin A1C 6.5 % Hgb (4.0-6.0)
[2020-08-31] MEDS: 0.9 % SODIUM CHLORIDE 1,000 ML IV SCH ×2 (08:56→22:26)
[2020-08-31] MEDS: ISOSORBIDE MONONITRATE 30 MG TAB.XL.24H PO SCH (08:57)
[2020-08-31 09:05] LABS: ALT/SGPT 17 U/L (<40); AST/SGOT 35 U/L (<40); Albumin 2.7 gm/dL (3.2-5.2); Albumin/Globulin Ratio 0.8 (1.0-2.3); Alkaline Phosphatase 102 U/L (39-117); Bilirubin,Direct < 0.2 mg/dL (0-0.3); Bilirubin,Total 0.2 mg/dL (0.1-1.0); Blood Urea Nitrogen 43 mg/dL (8-23); Calcium 8.4 mg/dL (8.6-10.4); Carbon Dioxide 27 mmol/L (22-30); Chloride 102 mmol/L (96-108); Globulin 3.6 gm/dL (2.2-3.7); Glomerular Filtration Rate 19; Glucose 118 mg/dL (70-105); Lactate Dehydrogenase 270 U/L (135-225); Triglycerides 107 mg/dL (<150)
[2020-08-31] MEDS: HEPARIN 5,000 UNIT/ML VIAL SQ SCH ×2 (10:31→21:25)
[2020-08-31] MEDS: GABAPENTIN 300 MG CAPSULE PO SCH ×2 (10:31→21:25)
[2020-08-31] MEDS: ATORVASTATIN 20 MG TABLET PO SCH (10:31)
[2020-08-31] MEDS: DOCUSATE SODIUM 100 MG CAPSULE PO SCH ×2 (10:31→21:25)
[2020-08-31] MEDS: ASPIRIN 81 MG TAB.CHEW PO SCH (10:31)
[2020-08-31] MEDS ORDERED: PROPOFOL 200 MG/20 ML VIAL IV ONE (11:20)
[2020-08-31] MEDS ORDERED: KETAMINE 100 MG/ML ML ONE (11:20)
[2020-08-31] MEDS ORDERED: GLYCOPYRROLATE 0.2 MG/ML VIAL IV ONE (11:20)
[2020-08-31] MEDS ORDERED: MAGNESIUM SULFATE 2 GM/50 ML BAG IV ONE (11:20)
[2020-08-31] MEDS ORDERED: LIDOCAINE HCL/PF 100 MG/5 ML SYRINGE IV ONE (11:20)
[2020-08-31] MEDS ORDERED: fentaNYL 100 MCG/2 ML VIAL IV ONE (11:20)
[2020-08-31] MEDS ORDERED: DEXAMETHASONE 10 MG/ML VIAL ONE (11:20)
[2020-08-31] MEDS ORDERED: ONDANSETRON 4 MG/2 ML VIAL ONE (11:20)
[2020-08-31] MEDS ORDERED: LACTATED RINGERS 250 ML IV PRN (11:39)
[2020-08-31] MEDS ORDERED: METHOCARBAMOL 1,000 MG/10 ML VIAL IV PRN (11:39)
[2020-08-31] MEDS ORDERED: BENZOCAINE/MENTHOL 1 LOZENGE PO PRN (11:39)
[2020-08-31] MEDS ORDERED: ACETAMINOPHEN 1,000 MG/100 ML BAG IV ONE (11:39)
[2020-08-31] MEDS ORDERED: IPRATROPIUM/ALBUTEROL 3 ML AMPUL.NEB NEB PRN (11:39)
[2020-08-31] MEDS ORDERED: fentaNYL 100 MCG/2 ML VIAL IV PRN (11:39)
[2020-08-31] MEDS ORDERED: ONDANSETRON 4 MG/2 ML VIAL IV PRN (11:39)
[2020-08-31] MEDS ORDERED: NALOXONE HCL 0.4 MG/ML VIAL IV PRN (11:39)
[2020-08-31] MEDS ORDERED: LACTATED RINGERS 1,000 ML IV SCH (11:45)
--- NOTE | 2020-08-31 11:54 | Operative Note ---
Operative Note Operative Note: Operation report Preop diagnosis bilateral hydronephrosis with retroperitoneal mass Postop diagnosis same Operation performed cystoscopy bilateral ureteral stent placement with fluoroscopy Surgeon: Dr. Anson Schilling Anesthesia: PHYSICAL DIRECTOR Ryan type General Drains bilateral 7 x 24 cm double-J stent without suture per urethra Additional procedure: Fluoroscopy Complications: None Description-- after adequate induction of general anesthesia patient was prepped and draped in dorsolithotomy position. Patient had timeout performed and cystoscopy was next accomplished. Patient had no urethral anomalies noted bladder showed moderate trabeculation and early cellule formation. Bladder irritability from prior stent was noted but no other mucosal anomaly seen. Patient had fluoroscopy utilized to place 7 x 24 cm double-J stents up both ureters with position confirmed fluoroscopically and cystoscopically. Patient cloudy effluent from both ureters after bypassing obstruction demonstrated good relief of obstruction. Patient had bladder drained with sutures removed and patient was returned to the recovery area in stable condition having tolerated procedure well.
[2020-08-31] MEDS: traMADol 50 MG TABLET PO PRN (18:32)
[2020-08-31] MEDS: TAMSULOSIN 0.4 MG CAPSULE PO SCH (21:25)
[2020-08-31] MEDS: MELATONIN 3 MG TABLET PO SCH (21:26)
[2020-08-31] MEDS: diphenhydrAMINE 25 MG CAPSULE PO SCH (21:26)
[2020-08-31] MEDS: ACETAMINOPHEN 500 MG TABLET PO SCH (21:26)
[2020-08-31] MEDS: HYDROcodone/APAP 5/325MG TABLET PO PRN (22:28)
[2020-09-01] MEDS: 0.9 % SODIUM CHLORIDE 10 ML SYRINGE IV SCH ×6 (05:24→22:46)
[2020-09-01 06:34] LABS: Basophils # (Auto) 0.01 K/mcL (0.00-0.20); Basophils % (Auto) 0.1 % (0.0-2.0); Eosinophils # (Auto) 0.03 K/mcL (0.00-0.70); Eosinophils % (Auto) 0.4 % (0.0-7.0); Hematocrit 37.1 % (41.0-55.0); Hemoglobin 11.5 g/dL (13.5-16.5); Lymphocytes # (Auto) 0.94 K/mcL (1.50-4.80); Lymphocytes % (Auto) 11.6 % (15.0-49.0); Mean Cell Volume 95.6 fL (80.0-100.0); Mean Platelet Volume 9.3 fL (7.4-10.4); Monocytes # (Auto) 0.73 K/mcL (0.10-0.90); Neutrophils % (Auto) 78.9 % (38.0-78.0); Platelet Count 337 K/mcL (140-440); RBC 3.88 M/mcL (4.50-5.90); Red Cell Distribution Width 13.2 % (11.5-14.5); WBC 8.1 K/mcL (4.5-11.0)
[2020-09-01] MEDS: INSULIN LISPRO 1 UNIT/0.01 ML UNIT SQ SCH ×4 (06:57→21:33)
[2020-09-01] MEDS: ACETAMINOPHEN 325 MG TABLET PO PRN ×2 (07:00→17:20)
[2020-09-01] MEDS: LEVOTHYROXINE 100 MCG TABLET PO SCH (07:01)
[2020-09-01 07:06] LABS: Blood Urea Nitrogen 38 mg/dL (8-23); Calcium 8.8 mg/dL (8.6-10.4); Carbon Dioxide 29 mmol/L (22-30); Chloride 100 mmol/L (96-108); Glomerular Filtration Rate 32; Glucose 121 mg/dL (70-105)
--- NOTE | 2020-09-01 07:30 | Internal Med Progress Note ---
SUBJECTIVE Subjective Patient information: Note initiated : 09/01/20 at 7:27 am Service Date, if different from initiated Date: [] Patient: Gio Abreu 85 y/o M admitted on 08/28/20 for confusion. Chief Complaint: [] Interval history: nterval history: History of present illness: Mr. Abreu is a 85 year old M Presents to the ED after several days of increasing weakness and intermittent confusion although he has hydrocephalus most notably is also had some twitching in his arm. In the ED with remarkable for acute kidney injury. Also found to be retaining urine and had 540cc remaining in bladder after small urination. He also had chest x-ray which showed a little bit of atelectasis and he had a CT brain which showed the MUSICAL INSTRUMENT MECHANIC shunt in satisfactory position functional Question of poor oral intake recently. He lives by himself but has somebody stay with him at night. 08/29 Poor sleep but otherwise feeling better. No new complaints. Creatinine did not improve. Discussed case with Dr. Mcneil and will see the patient KUB pending. 08/30 CT findings suspicious for lymphoma and encasing the ureters. Creatinine bumped slightly today.. Patient has no new complaints today. 08/31 No overnight event or new complaints. Patient will undergo cystoscopy with bilateral stent placement today. No new complaints. 09/01 Patient feeling better. Received bilateral stents yesterday. Renal function improving. No complaints or overnight events. Review of Systems: denies headache/fever/chills/nausea/vomiting/chest or abdominal pain/coug h/dyspnea/diarrhea. Otherwise see above. Constitutional Vitals: Vital Signs Temp Pulse Resp BP Pulse Ox 98.9 F 96 H 16 146/86 91 09/01/20 03:15 09/01/20 03:15 09/01/20 03:15 09/01/20 03:15 09/01/20 06:00 Period Temp Pulse Resp BP Sys/Shelley Pulse Ox Last 24 Hr 97.6 F-99.5 F 92-100 14-20 108-160/54-87 88-96 Intake and Output 08/31/20 09/01/20 09/01/20 21:59 05:59 13:59 Intake Total 490 1500 Output Total 1325 450 450 Balance -835 1050 -450 Weight 95.073 kg Intake & Output: Intake & Output 08/31/20 09/01/20 09/01/20 21:59 05:59 13:59 Intake Total 490 1500 Output Total 1325 450 450 Balance -835 1050 -450 Weight 95.073 kg Intake: IV 1000 Sodium Chloride 0.9% 1,000 ml @ 1000 75 mls/hr IV .[id number] [facility] Rx#: [id number] Oral 490 500 Output: Void Amount 1325 450 450 Other: Meal Dinner Percent of Meal Consumed 100% Urine Appearance Clear Clear Clear Urine Color Dark Blanca Dark Blanca Tea Colored Exam: General: Alert, Awake, No acute Distress Eyes/N/T: EOMI, Head/Neck: neck supple, CV: RRR, No murmurs, Pulm: Clear b/l, no wheezing/rhonchi/rales Abd: soft, nontender, +BS x4 Ext: no clubbing/cyanosis/ chronic mild LLE edema Neuro: Alert, no focal deficits, moves all extremities, Skin: warm/dry OBJ DATA Labs CBC & Chem 7: 09/01/20 05:25 09/01/20 05:25 Labs: Abnormal Lab Results 09/01/20 09/01/20 08/31/20 05:25 05:25 06:12 RBC 3.88 L Hgb 11.5 L Hct 37.1 L MCHC Neut % (Auto) 78.9 H Lymph % (Auto) 11.6 L Lymph # (Auto) 0.94 L [place] # (Auto) BUN 38 H Creatinine 1.9 H Glucose 121 H Hemoglobin A1c 6.5 H Uric Acid Calcium Phosphorus GGT AST Alkaline Phosphatase Lactate Dehydrogenase Albumin Globulin Albumin/Globulin Ratio 08/31/20 08/30/20 08/30/20 06:12 13:24 05:44 RBC Hgb Hct MCHC Neut % (Auto) Lymph % (Auto) Lymph # (Auto) [place] # (Auto) BUN 43 H 43 H 42 H Creatinine 2.9 H 3.1 H 3.0 H Glucose 118 H 109 H 114 H Hemoglobin A1c Uric Acid 9.0 H 8.6 H Calcium 8.4 L 8.4 L Phosphorus 5.0 H 5.1 H GGT AST Alkaline Phosphatase Lactate Dehydrogenase 270 H 314 H Albumin 2.7 L 3.0 L 2.9 L Globulin 3.8 H Albumin/Globulin Ratio 0.8 L 0.8 L 0.8 L 03/23/21 03/23/21 06:28 06:27 RBC 3.74 L Hgb 11.0 L Hct 37.0 L MCHC 29.7 L Neut % (Auto) Lymph % (Auto) 11.5 L Lymph # (Auto) 1.01 L [place] # (Auto) 0.95 H BUN 41 H Creatinine 2.9 H Glucose Hemoglobin A1c Uric Acid 8.6 H Calcium Phosphorus 4.7 H GGT 67 H AST 40 H Alkaline Phosphatase 119 H Lactate Dehydrogenase 346 H Albumin 2.8 L Globulin 4.2 H Albumin/Globulin Ratio 0.7 L Meds: Medications Acetaminophen (Acetaminophen 325 Mg Tablet) 650 mg PO Q6HP PRN PRN Reason: PAIN/FEVER > 101 Last Admin: 09/01/20 07:00 Dose: 650 mg Documented by: Acetaminophen (Acetaminophen 500 Mg Tablet) 500 mg PO [facility] Last Admin: 08/31/20 21:26 Dose: 500 mg Documented by: Hydrocodone Bitart/Acetaminophen (Hydrocodone/Apap 5/325mg Tablet) 1 tab PO Q4HP PRN PRN Reason: PAIN LEVEL 3-6 Last Admin: 08/31/20 22:28 Dose: 1 tab Documented by: Albuterol/Ipratropium (Ipratropium/Albuterol 3 Ml Ampul.Neb) 3 ml NEB Q4HP PRN PRN Reason: Shortness Of Breath Aspirin (Aspirin 81 Mg Tab.Chew) 81 mg PO QDAY [facility] Last Admin: 08/31/20 10:31 Dose: Not Given Documented by: Atorvastatin Calcium (Atorvastatin 20 Mg Tablet) 20 mg PO QDAY [facility] Last Admin: 08/31/20 10:31 Dose: Not Given Documented by: Dextrose (Dextrose 50% 50 Ml Vial) 0 ml IV UD PRN PRN Reason: Hypoglycemia Diagnostic Test (Pha) (Accu-Chek 1 Each Strip) 1 each FS ACHS [facility] Last Admin: 09/01/20 06:57 Dose: 1 each Documented by: Diphenhydramine HCl (Diphenhydramine 25 Mg Capsule) 25 mg PO [facility] Last Admin: 08/31/20 21:26 Dose: 25 mg Documented by: Docusate Sodium (Docusate Sodium 100 Mg Capsule) 100 mg PO BID [facility] Last Admin: 08/31/20 21:25 Dose: 100 mg Documented by: Gabapentin (Gabapentin 300 Mg Capsule) 300 mg PO BID [facility] Last Admin: 08/31/20 21:25 Dose: 300 mg Documented by: Glucose (Dextrose 31 Gm Oral.Susp) 15 gm PO PRN PRN PRN Reason: Hypoglycemia Heparin Sodium (Porcine) (Heparin 5,000 Unit/Ml Vial) 5,000 unit SQ Q12 [facility] Last Admin: 08/31/20 21:25 Dose: 5,000 unit Documented by: Hydralazine HCl (Hydralazine 20 Mg/Ml Vial) 0 mg IV Q2HP PRN PRN Reason: Hypertension Last Admin: 08/31/20 07:22 Dose: 10 mg Documented by: Potassium Chloride 40 meq/ (Dextrose) 520 mls @ 130 mls/hr IV UD PRN PRN Reason: Potassium < 3 Magnesium Sulfate (Magnesium Sulfate) 2 gm in 50 mls @ 50 mls/hr IV UD PRN PRN Reason: Magnesium </= 1.6 Sodium Chloride (Sodium Chloride 0.9%) 1,000 mls @ 75 mls/hr IV .[id number] [facility] Last Admin: 08/31/20 22:26 Dose: 75 mls/hr Documented by: Insulin Human Lispro (Insulin Lispro 1 Unit/0.01 Ml Unit) 0 unit SQ ACHS [facility]; Protocol Last Admin: 09/01/20 06:57 Dose: Not Given Documented by: Isosorbide Mononitrate (Isosorbide Mononitrate 30 Mg Tab.Xl.24h) 15 mg PO QDAY [facility] Last Admin: 08/31/20 08:57 Dose: 15 mg Documented by: Labetalol HCl (Labetalol 5 Mg/Ml Ml) 0 mg IV Q2HP PRN PRN Reason: Hypertension Last Admin: 08/29/20 09:03 Dose: 20 mg Documented by: Levothyroxine Sodium (Levothyroxine 100 Mcg Tablet) 100 mcg PO QAMAC [facility] Last Admin: 09/01/20 07:01 Dose: 100 mcg Documented by: Melatonin (Melatonin 3 Mg Tablet) 6 - 9 mg PO QHS [facility] Last Admin: 08/31/20 21:26 Dose: 6 mg Documented by: Nitroglycerin (Nitroglycerin 0.4 Mg Tab.Subl) 0.4 mg SL Q5M PRN PRN Reason: Chest Pain Ondansetron HCl (Ondansetron 4 Mg/2 Ml Vial) 4 mg IV Q4HP PRN PRN Reason: Nausea And Vomiting Last Admin: 08/29/20 22:39 Dose: 4 mg Documented by: Polyethylene Glycol (Polyethylene Glycol 3350 17 Gm Packet) 17 gm PO DAILYP PRN PRN Reason: Constipation Potassium Chloride (Potassium Chloride 20 Meq Tablet) 40 meq PO UD PRN PRN Reason: Potssium is 3-3.5 Potassium Chloride (Potassium Chloride 20 Meq Tablet) 40 meq PO UD PRN PRN Reason: Potassium < 3 Senna (Sennosides 1 Tablet) 2 tab PO DAILYP PRN PRN Reason: Constipation Sodium Chloride (0.9 % Sodium Chloride 10 Ml Syringe) 10 ml IV Q8 [facility] Last Admin: 09/01/20 05:24 Dose: Not Given Documented by: Sodium Chloride (0.9 % Sodium Chloride 10 Ml Syringe) 10 ml IV Q8 [facility] Last Admin: 09/01/20 05:24 Dose: Not Given Documented by: Tamsulosin HCl (Tamsulosin 0.4 Mg Capsule) 0.4 mg PO HS [facility] Last Admin: 08/31/20 21:25 Dose: 0.4 mg Documented by: Tramadol HCl (Tramadol 50 Mg Tablet) 50 mg PO BIDP PRN; Protocol PRN Reason: pain Last Admin: 08/31/20 18:32 Dose: 50 mg Documented by: A/P Narrative A/P Narrative: A: 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: prerenal + ureteral obstruction (severe adenopathy encasing ureters): -Cr now improving *Obstructive Uropathy with b/l Hydronephrosis/hydroureter from LAD: s/p b/l stends (08/31) *UR: s/p eddy in ED -h/o TURP one year ago *LAD: retroperitoneal/pelvic -suspicious for lymphoma, biospy pending *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: *CAD w/cabg: *Hypothyroidism: *Hyper/Hypo-TN: Recently started on midodrine for low blood outpt, elevated beginning of admission P: -Urology following -f/u renal fxn in AM -Tissue Biopsy results pending -hold home meloxicam -hold metformin, SSI -Continue home aspirin/statin/imdur -midodrine held, prn IV BP meds -pt/ot -CM for placement needs -ppx: heparin full code Time Spent With Patient Time: Total time spent is greater than 50% in coordination of care (as documented) at patient's floor/unit and/or counseling patient: QUALITY VTE Deep Vein Thrombosis/Pulmonary Embolism Present on Admission: No
--- NOTE | 2020-09-01 07:46 | General Surgery Progress Note ---
SUBJECTIVE Subjective Patient information: Note initiated : 09/01/20 at 7:43 am Service Date, if different from initiated Date: [] Patient: Gio Abreu 85 y/o M admitted on 08/28/20 for confusion. Chief Complaint: [] Interval history: Patient continues we will and is reporting without significant problems Tolerating statins well at this point Constitutional Vitals: Vital Signs Temp Pulse Resp BP Pulse Ox 98.9 F 96 H 16 146/86 91 09/01/20 03:15 09/01/20 03:15 09/01/20 03:15 09/01/20 03:15 09/01/20 06:00 Period Temp Pulse Resp BP Sys/Shelley Pulse Ox Last 24 Hr 97.6 F-99.5 F 92-100 14-20 108-160/54-87 88-96 Intake and Output 08/31/20 09/01/20 09/01/20 21:59 05:59 13:59 Intake Total 490 1500 Output Total 1325 450 450 Balance -835 1050 -450 Weight 209 lb 9.6 oz Intake & Output: Intake & Output 08/31/20 09/01/20 09/01/20 21:59 05:59 13:59 Intake Total 490 1500 Output Total 1325 450 450 Balance -835 1050 -450 Weight 209 lb 9.6 oz Intake: IV 1000 Sodium Chloride 0.9% 1,000 ml @ 1000 75 mls/hr IV .[id number] [facility] Rx#: [id number] Oral 490 500 Output: Void Amount 1325 450 450 Other: Meal Dinner Percent of Meal Consumed 100% Urine Appearance Clear Clear Clear Urine Color Dark Blanca Dark Blanca Tea Colored Additional findings Additional findings: At this point still comfortable minimal CVA tenderness Abdomen soft Chest normal diaphragmatic excursion A/P Narrative A/P Narrative: Patient improving with bilateral stent placement her creatinine dropped to 1.9 this morning Remainder of labs within normal limits and tolerated well Plan: Await tissue pathology results and medical care as to further issues with treatment. Patient will require stent replacement and 3 to 4 months pending clinical status Time Spent With Patient Time: Total time spent is greater than 50% in coordination of care (as documented) at patient's floor/unit and/or counseling patient:
[2020-09-01] MEDS: ISOSORBIDE MONONITRATE 30 MG TAB.XL.24H PO SCH (09:06)
[2020-09-01] MEDS: HEPARIN 5,000 UNIT/ML VIAL SQ SCH ×2 (09:07→21:27)
[2020-09-01] MEDS: GABAPENTIN 300 MG CAPSULE PO SCH ×2 (09:07→21:30)
[2020-09-01] MEDS: DOCUSATE SODIUM 100 MG CAPSULE PO SCH ×2 (09:07→21:29)
[2020-09-01] MEDS: ATORVASTATIN 20 MG TABLET PO SCH (09:07)
[2020-09-01] MEDS: ASPIRIN 81 MG TAB.CHEW PO SCH (09:07)
--- NOTE | 2020-09-01 10:43 | XRay Report ---
CLINICAL INFORMATION: bilateral stent COMPARISON: None. FINDINGS: Multiple digital images from the OR submitted. Final image shows bilateral pigtail ureteral stent in expected location overlying the ureters. IMPRESSION: Bilateral ureteral stents in satisfactory position. Interpreted and Authenticated by: Eris Calix 09/01/20
--- NOTE | 2020-09-01 12:42 | Internal Med Progress Note ---
SUBJECTIVE Subjective Patient information: Note initiated : 09/02/20 at 12:39 pm Service Date, if different from initiated Date: [] Patient: Gio Abreu 85 y/o M admitted on 08/28/20 for confusion. Chief Complaint: [] Interval history: Interval history: History of present illness: Mr. Abreu is a 85 year old M Presents to the ED after several days of increasing weakness and intermittent confusion and most notably also had some twitching in his arm. In the ED with remarkable for acute kidney injury. Also found to be retaining urine and had 540cc remaining in bladder after small urination. He also had chest x-ray which showed a little bit of atelectasis and he had a CT brain which showed the ARBORIST shunt in satisfactory position functional. Question of poor oral intake recently. He lives by himself but has somebody stay with him at night. 08/29 Poor sleep but otherwise feeling better. No new complaints. Creatinine did not improve. Discussed case with Dr. Mcneil and will see the patient KUB pending. 08/30 CT findings suspicious for lymphoma and encasing the ureters. Creatinine bumped slightly today.. Patient has no new complaints today. 08/31 No overnight event or new complaints. Patient will undergo cystoscopy with bi lateral stent placement today. No new complaints. 09/01 Patient feeling better. Received bilateral stents yesterday. Renal function improving. No complaints or overnight events. 09/02 Seems more confused today. Scrotal and penile edema, urology aware. Renal function improved. Review of Systems: denies headache/fever/chills/nausea/vomiting/chest or abdominal pain/cough/dyspnea/diarrhea. Otherwise see above. Constitutional Vitals: Vital Signs Temp Pulse Resp BP Pulse Ox 98.2 F 96 H 20 118/74 94 09/01/20 12:00 09/01/20 03:15 09/01/20 12:00 09/01/20 12:00 09/01/20 12:00 Period Temp Pulse Resp BP Sys/Shelley Pulse Ox Last 24 Hr 97.6 F-98.9 F 96-97 16-20 118-160/70-87 88-96 Intake and Output 08/31/20 09/01/20 09/01/20 21:59 05:59 13:59 Intake Total 490 1500 898 Output Total 1325 450 850 Balance -835 1050 48 Weight 95.073 kg Intake & Output: Intake & Output 08/31/20 09/01/20 09/01/20 21:59 05:59 13:59 Intake Total 490 1500 898 Output Total 1325 450 850 Balance -835 1050 48 Weight 95.073 kg Intake: IV 1000 718 Sodium Chloride 0.9% 1,000 ml @ 1000 718 75 mls/hr IV .[id number] [facility] Rx#: [id number] Oral 490 500 180 Output: Void Amount 1325 450 850 Other: Meal Dinner Breakfast Percent of Meal Consumed 100% 100% Feeding Ability Independent Urine Appearance Clear Clear Clear Urine Color Dark Blanca Dark Blanca Dark Blanca Exam: General: Alert, Awake, No acute Distress Eyes/N/T: EOMI, Head/Neck: neck supple, CV: RRR, No murmurs, Pulm: Clear b/l, no wheezing/rhonchi/rales Abd: soft, nontender, +BS x4 Ext: no clubbing/cyanosis/ chronic mild LLE edema Neuro: Alert, no focal deficits, moves all extremities, disoriented. Skin: warm/dry OBJ DATA Labs CBC & Chem 7: 09/02/20 05:33 09/02/20 05:34 Labs: Abnormal Lab Results 09/01/20 09/01/20 08/31/20 05:25 05:25 06:12 RBC 3.88 L Hgb 11.5 L Hct 37.1 L Neut % (Auto) 78.9 H Lymph % (Auto) 11.6 L Lymph # (Auto) 0.94 L BUN 38 H Creatinine 1.9 H Glucose 121 H Hemoglobin A1c 6.5 H Uric Acid Calcium Phosphorus Lactate Dehydrogenase Albumin Globulin Albumin/Globulin Ratio 08/31/20 08/30/20 08/30/20 06:12 13:24 05:44 RBC Hgb Hct Neut % (Auto) Lymph % (Auto) Lymph # (Auto) BUN 43 H 43 H 42 H Creatinine 2.9 H 3.1 H 3.0 H Glucose 118 H 109 H 114 H Hemoglobin A1c Uric Acid 9.0 H 8.6 H Calcium 8.4 L 8.4 L Phosphorus 5.0 H 5.1 H Lactate Dehydrogenase 270 H 314 H Albumin 2.7 L 3.0 L 2.9 L Globulin 3.8 H Albumin/Globulin Ratio 0.8 L 0.8 L 0.8 L Meds: Medications Acetaminophen (Acetaminophen 325 Mg Tablet) 650 mg PO Q6HP PRN PRN Reason: PAIN/FEVER > 101 Last Admin: 09/01/20 07:00 Dose: 650 mg Documented by: Acetaminophen (Acetaminophen 500 Mg Tablet) 500 mg PO [facility] Last Admin: 08/31/20 21:26 Dose: 500 mg Documented by: Hydrocodone Bitart/Acetaminophen (Hydrocodone/Apap 5/325mg Tablet) 1 tab PO Q4HP PRN PRN Reason: PAIN LEVEL 3-6 Last Admin: 08/31/20 22:28 Dose: 1 tab Documented by: Albuterol/Ipratropium (Ipratropium/Albuterol 3 Ml Ampul.Neb) 3 ml NEB Q4HP PRN PRN Reason: Shortness Of Breath Aspirin (Aspirin 81 Mg Tab.Chew) 81 mg PO QDAY [facility] Last Admin: 09/01/20 09:07 Dose: 81 mg Documented by: Atorvastatin Calcium (Atorvastatin 20 Mg Tablet) 20 mg PO QDAY [facility] Last Admin: 09/01/20 09:07 Dose: 20 mg Documented by: Dextrose (Dextrose 50% 50 Ml Vial) 0 ml IV UD PRN PRN Reason: Hypoglycemia Diagnostic Test (Pha) (Accu-Chek 1 Each Strip) 1 each FS ACHS [facility] Last Admin: 09/01/20 11:21 Dose: 1 each Documented by: Diphenhydramine HCl (Diphenhydramine 25 Mg Capsule) 25 mg PO [facility] Last Admin: 08/31/20 21:26 Dose: 25 mg Documented by: Docusate Sodium (Docusate Sodium 100 Mg Capsule) 100 mg PO BID [facility] Last Admin: 09/01/20 09:07 Dose: 100 mg Documented by: Gabapentin (Gabapentin 300 Mg Capsule) 300 mg PO BID [facility] Last Admin: 09/01/20 09:07 Dose: 300 mg Documented by: Glucose (Dextrose 31 Gm Oral.Susp) 15 gm PO PRN PRN PRN Reason: Hypoglycemia Heparin Sodium (Porcine) (Heparin 5,000 Unit/Ml Vial) 5,000 unit SQ Q12 [facility] Last Admin: 09/01/20 09:07 Dose: 5,000 unit Documented by: Hydralazine HCl (Hydralazine 20 Mg/Ml Vial) 0 mg IV Q2HP PRN PRN Reason: Hypertension Last Admin: 08/31/20 07:22 Dose: 10 mg Documented by: Potassium Chloride 40 meq/ (Dextrose) 520 mls @ 130 mls/hr IV UD PRN PRN Reason: Potassium < 3 Magnesium Sulfate (Magnesium Sulfate) 2 gm in 50 mls @ 50 mls/hr IV UD PRN PRN Reason: Magnesium </= 1.6 Insulin Human Lispro (Insulin Lispro 1 Unit/0.01 Ml Unit) 0 unit SQ ACHS [facility]; Protocol Last Admin: 09/01/20 11:21 Dose: Not Given Documented by: Isosorbide Mononitrate (Isosorbide Mononitrate 30 Mg Tab.Xl.24h) 15 mg PO QDAY [facility] Last Admin: 09/01/20 09:06 Dose: 15 mg Documented by: Labetalol HCl (Labetalol 5 Mg/Ml Ml) 0 mg IV Q2HP PRN PRN Reason: Hypertension Last Admin: 08/29/20 09:03 Dose: 20 mg Documented by: Levothyroxine Sodium (Levothyroxine 100 Mcg Tablet) 100 mcg PO QAMAC [facility] Last Admin: 09/01/20 07:01 Dose: 100 mcg Documented by: Melatonin (Melatonin 3 Mg Tablet) 6 - 9 mg PO QHS [facility] Last Admin: 08/31/20 21:26 Dose: 6 mg Documented by: Nitroglycerin (Nitroglycerin 0.4 Mg Tab.Subl) 0.4 mg SL Q5M PRN PRN Reason: Chest Pain Ondansetron HCl (Ondansetron 4 Mg/2 Ml Vial) 4 mg IV Q4HP PRN PRN Reason: Nausea And Vomiting Last Admin: 08/29/20 22:39 Dose: 4 mg Documented by: Polyethylene Glycol (Polyethylene Glycol 3350 17 Gm Packet) 17 gm PO DAILYP PRN PRN Reason: Constipation Potassium Chloride (Potassium Chloride 20 Meq Tablet) 40 meq PO UD PRN PRN Reason: Potssium is 3-3.5 Potassium Chloride (Potassium Chloride 20 Meq Tablet) 40 meq PO UD PRN PRN Reason: Potassium < 3 Senna (Sennosides 1 Tablet) 2 tab PO DAILYP PRN PRN Reason: Constipation Sodium Chloride (0.9 % Sodium Chloride 10 Ml Syringe) 10 ml IV Q8 [facility] Last Admin: 09/01/20 05:24 Dose: Not Given Documented by: Sodium Chloride (0.9 % Sodium Chloride 10 Ml Syringe) 10 ml IV Q8 [facility] Last Admin: 09/01/20 05:24 Dose: Not Given Documented by: Tamsulosin HCl (Tamsulosin 0.4 Mg Capsule) 0.4 mg PO HS [facility] Last Admin: 08/31/20 21:25 Dose: 0.4 mg Documented by: Tramadol HCl (Tramadol 50 Mg Tablet) 50 mg PO BIDP PRN; Protocol PRN Reason: pain Last Admin: 08/31/20 18:32 Dose: 50 mg Documented by: A/P Narrative A/P Narrative: Assessment: 85-year-old male with multiple comorbidities including DM, NPH status post ARBORIST shunt, CAD status post CABG, hypothyroidism, admitted for obstructive JAKE secondary to retroperitoneal adenopathy which is concerning for lymphoma. 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: stable *CAD w/ CABG: *Hypothyroidism: *Hyper/Hypo-TN: Recently started on midodrine for low blood outpt, elevated beginning of admission P: -Urology following -f/u renal fxn -Tissue Biopsy results pending -hold home meloxicam -hold metformin, SSI -start norvasc 2.5 mg daily -Continue home aspirin/statin/imdur -midodrine held, prn IV BP meds -pt/ot -CM for placement needs -ppx: heparin full code Time Spent With Patient Time: Total time spent is greater than 50% in coordination of care (as documented) at patient's floor/unit and/or counseling patient: QUALITY VTE Deep Vein Thrombosis/Pulmonary Embolism Present on Admission: No
--- NOTE | 2020-09-01 20:06 | General Surgery Progress Note ---
SUBJECTIVE Subjective Patient information: Note initiated : 09/01/20 at 8:02 pm Service Date, if different from initiated Date: [] Patient: Gio Abreu 85 y/o M admitted on 08/28/20 for confusion. Chief Complaint: [] Interval history: Patient has increased scrotal and lower limb edema noted by nursing called for evaluation Constitutional Vitals: Vital Signs Temp Pulse Resp BP Pulse Ox 98.2 F 95 H 20 165/90 90 09/01/20 19:02 09/01/20 19:02 09/01/20 19:02 09/01/20 19:05 09/01/20 19:02 Period Temp Pulse Resp BP Sys/Shelley Pulse Ox Last 24 Hr 98.2 F-98.9 F 95-96 16-20 118-179/70-96 88-96 Intake and Output 09/01/20 09/01/20 09/01/20 05:59 13:59 21:59 Intake Total 1500 898 650 Output Total 450 850 Balance 1050 48 650 Weight 209 lb 9.6 oz Patient Weight 09/02/20 05:59 Weight 209 lb 9.6 oz Intake & Output: Intake & Output 09/01/20 09/01/20 09/01/20 05:59 13:59 21:59 Intake Total 1500 898 650 Output Total 450 850 Balance 1050 48 650 Weight 209 lb 9.6 oz Intake: IV 1000 718 Sodium Chloride 0.9% 1,000 ml @ 1000 718 75 mls/hr IV .[id number] [facility] Rx#: [id number] Oral 500 180 650 Output: Void Amount 450 850 Other: Meal Breakfast Percent of Meal Consumed 100% Feeding Ability Independent Urine Appearance Clear Clear Urine Color Dark Blanca Dark Blanca Additional findings Additional findings: Patient with scrotal and penile edema glans still visible Some minimal erythema and no excoriation noted. Patient has left greater than right lower extremity edema pitting above the knee I think we have some knee that is the presently nontoxic her son scrotal related discomfort A/P Narrative A/P Narrative: Pedal and scrotal edema with some mild urine retention Etiology more likely retroperitoneal adenopathy and will try medical and positional therapy KUB demonstrates stents in good position still plan- recheck labs in the morning and will try to reduce dependent position for scrotum and legs as well as some thigh-high teds and try increased Flomax to twice daily Time Spent With Patient Time: Total time spent is greater than 50% in coordination of care (as documented) at patient's floor/unit and/or counseling patient:
[2020-09-01] MEDS: ACETAMINOPHEN 500 MG TABLET PO SCH (21:27)
[2020-09-01] MEDS: diphenhydrAMINE 25 MG CAPSULE PO SCH (21:28)
[2020-09-01] MEDS: MELATONIN 3 MG TABLET PO SCH (21:29)
[2020-09-01] MEDS: TAMSULOSIN 0.4 MG CAPSULE PO SCH ×2 (21:29)
[2020-09-01] MEDS: HYDROcodone/APAP 5/325MG TABLET PO PRN (21:30)
--- NOTE | 2020-09-02 01:49 | XRay Report ---
CLINICAL INFORMATION: Penile and scrotral edema COMPARISON: Abdomen and pelvic CT 08/30/2020 FINDINGS: Stool gas pattern is normal. No free air, soft tissue mass or organomegaly. Bilateral ureteral stents are in stable satisfactory position overlying each ureter. A small amount of residual contrast seen in the right upper collecting system. IMPRESSION: Negative exam Interpreted and Authenticated by: Eris Calix 09/02/20
[2020-09-02] MEDS: hydrALAZINE 20 MG/ML VIAL IV PRN (04:36)
[2020-09-02] MEDS: 0.9 % SODIUM CHLORIDE 10 ML SYRINGE IV SCH ×6 (04:36→21:00)
[2020-09-02] MEDS: HYDROcodone/APAP 5/325MG TABLET PO PRN ×3 (04:39→23:45)
[2020-09-02 06:16] LABS: Basophils # (Auto) 0.05 K/mcL (0.00-0.20); Basophils % (Auto) 0.6 % (0.0-2.0); Eosinophils # (Auto) 0.28 K/mcL (0.00-0.70); Eosinophils % (Auto) 3.3 % (0.0-7.0); Hematocrit 33.1 % (41.0-55.0); Hemoglobin 10.3 g/dL (13.5-16.5); Lymphocytes % (Auto) 10.7 % (15.0-49.0); Mean Cell Volume 95.7 fL (80.0-100.0); Mean Corpuscular HGB Conc 31.1 g/dL (31.0-36.0); Monocytes # (Auto) 0.81 K/mcL (0.10-0.90); Monocytes % (Auto) 9.6 % (1.0-12.0); Neutrophils % (Auto) 75.8 % (38.0-78.0); Platelet Count 353 K/mcL (140-440); RBC 3.46 M/mcL (4.50-5.90); Red Cell Distribution Width 13.2 % (11.5-14.5); WBC 8.4 K/mcL (4.5-11.0)
[2020-09-02 06:41] LABS: Blood Urea Nitrogen 28 mg/dL (8-23); Calcium 8.5 mg/dL (8.6-10.4); Carbon Dioxide 28 mmol/L (22-30); Chloride 103 mmol/L (96-108); Glomerular Filtration Rate 55; Glucose 111 mg/dL (70-105)
[2020-09-02] MEDS: INSULIN LISPRO 1 UNIT/0.01 ML UNIT SQ SCH ×4 (07:38→21:00)
[2020-09-02] MEDS: LEVOTHYROXINE 100 MCG TABLET PO SCH (07:56)
[2020-09-02] MEDS: HEPARIN 5,000 UNIT/ML VIAL SQ SCH ×2 (10:48→20:58)
[2020-09-02] MEDS: ISOSORBIDE MONONITRATE 30 MG TAB.XL.24H PO SCH (10:48)
[2020-09-02] MEDS: GABAPENTIN 300 MG CAPSULE PO SCH ×2 (10:48→20:58)
[2020-09-02] MEDS: ASPIRIN 81 MG TAB.CHEW PO SCH (10:48)
[2020-09-02] MEDS: DOCUSATE SODIUM 100 MG CAPSULE PO SCH ×2 (10:48→20:59)
[2020-09-02] MEDS: ATORVASTATIN 20 MG TABLET PO SCH (10:48)
--- NOTE | 2020-09-02 11:15 | General Surgery Progress Note ---
SUBJECTIVE Subjective Patient information: Note initiated : 09/02/20 at 11:10 am Service Date, if different from initiated Date: [] Patient: Gio Abreu 85 y/o M admitted on 08/28/20 for confusion. Chief Complaint: [] Interval history: Patient comfortable but still concerned about swelling in the scrotum and legs Constitutional Vitals: Vital Signs Temp Pulse Resp BP Pulse Ox 98.6 F 97 H 20 163/81 95 09/02/20 07:22 09/02/20 04:15 09/02/20 07:22 09/02/20 07:22 09/02/20 07:22 Period Temp Pulse Resp BP Sys/Shelley Pulse Ox Last 24 Hr 98.2 F-98.6 F 91-97 16-20 118-179/74-97 90-95 Intake and Output 09/01/20 09/02/20 09/02/20 21:59 05:59 13:59 Intake Total 650 500 Output Total 400 1350 850 Balance 250 -850 -850 Weight 209 lb Intake & Output: Intake & Output 09/01/20 09/02/20 09/02/20 21:59 05:59 13:59 Intake Total 650 500 Output Total 400 1350 850 Balance 250 -850 -850 Weight 209 lb Intake: Oral 650 500 Output: Urine Catheter Amount 350 Void Amount 400 1000 850 Other: Urine Appearance Clear Clear Clear Urine Color Dark Yellow Bright Yellow Bright Yellow Urine Odor Normal Normal Normal Additional findings Additional findings: Patient nontoxic sitting in bed and 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 Chest normal respiratory excursion and no shortness of breath Abdomen soft penile and scrotal edema persistent but stable Lower extremity edema greater left leg and right stable to slightly improved A/P Narrative A/P Narrative: Assessment: Improving renal function with creatinine to 1.2 Persistent scrotal and lower extremity edema consistent with his retroperitoneal adenopathy Some urinary retention but will try to manage without catheter using alpha- brown therapy ---postvoid residual after 600 cc void with 250cc noted on bladder scan Plan: Continue Flomax and continue elevation of scrotum and legs as able Continue to monitor labs and urinary retention Time Spent With Patient Time: Total time spent is greater than 50% in coordination of care (as documented) at patient's floor/unit and/or counseling patient:
[2020-09-02] MEDS: amLODIPine 5 MG TABLET PO SCH (11:57)
[2020-09-02] MEDS: POLYETHYLENE GLYCOL 3350 17 GM PACKET PO PRN (20:57)
[2020-09-02] MEDS: ACETAMINOPHEN 500 MG TABLET PO SCH (20:58)
[2020-09-02] MEDS: TAMSULOSIN 0.4 MG CAPSULE PO SCH (20:58)
[2020-09-02] MEDS: MELATONIN 3 MG TABLET PO SCH (20:58)
[2020-09-02] MEDS: diphenhydrAMINE 25 MG CAPSULE PO SCH (20:59)
[2020-09-03] MEDS: HYDROcodone/APAP 5/325MG TABLET PO PRN ×3 (04:36→18:46)
[2020-09-03] MEDS: 0.9 % SODIUM CHLORIDE 10 ML SYRINGE IV SCH ×6 (04:36→21:45)
[2020-09-03] MEDS: INSULIN LISPRO 1 UNIT/0.01 ML UNIT SQ SCH ×4 (07:26→21:00)
[2020-09-03] MEDS: LEVOTHYROXINE 100 MCG TABLET PO SCH (07:26)
[2020-09-03] MEDS: DOCUSATE SODIUM 100 MG CAPSULE PO SCH ×2 (08:16→21:02)
[2020-09-03] MEDS: HEPARIN 5,000 UNIT/ML VIAL SQ SCH ×2 (08:16→21:00)
[2020-09-03] MEDS: ASPIRIN 81 MG TAB.CHEW PO SCH (08:16)
[2020-09-03] MEDS: amLODIPine 5 MG TABLET PO SCH (08:16)
[2020-09-03] MEDS: ISOSORBIDE MONONITRATE 30 MG TAB.XL.24H PO SCH (08:17)
[2020-09-03] MEDS: ATORVASTATIN 20 MG TABLET PO SCH (08:17)
[2020-09-03] MEDS: GABAPENTIN 300 MG CAPSULE PO SCH ×2 (08:17→21:02)
[2020-09-03] MEDS: traMADol 50 MG TABLET PO PRN (08:21)
--- NOTE | 2020-09-03 11:04 | General Surgery Progress Note ---
SUBJECTIVE Subjective Patient information: Note initiated : 09/03/20 at 11:01 am Service Date, if different from initiated Date: [] Patient: Gio Abreu 85 y/o M admitted on 08/28/20 for confusion. Chief Complaint: [] Interval history: Patient presently doing well with less discomfort and mobilizing the hallway Continuing on medical management and awaiting pathology results from CT guided biopsy Constitutional Vitals: Vital Signs Temp Pulse Resp BP Pulse Ox 99 F 93 H 16 147/86 94 09/03/20 07:44 09/03/20 04:00 09/03/20 07:44 09/03/20 07:44 09/03/20 07:44 Period Temp Pulse Resp BP Sys/Shelley Pulse Ox Last 24 Hr 97.7 F-99 F 93-101 16-20 134-154/78-86 90-96 Intake and Output 09/02/20 09/03/20 09/03/20 21:59 05:59 13:59 Intake Total 800 240 Output Total 575 1050 702 Balance 225 -810 -702 Weight 203 lb 3.2 oz Intake & Output: Intake & Output 09/02/20 09/03/20 09/03/20 21:59 05:59 13:59 Intake Total 800 240 Output Total 575 1050 702 Balance 225 -810 -702 Weight 203 lb 3.2 oz Intake: Oral 800 240 Output: Void Amount 575 1050 700 # of times incontinent of urine 2 Other: Meal Dinner Percent of Meal Consumed 75% Feeding Ability Independent Urine Appearance Clear Clear Clear Urine Color Light Blanca Light Blanca Dark Yellow Urine Odor Normal # Voids 2 Additional findings Additional findings: Patient nontoxic and comfortable Abdomen soft marked improvement in scrotal and penile edema as well as lower extremity edema Patient is presently wearing briefs for his incontinence but briefs presently dry A/P Narrative A/P Narrative: Assessment: Continues to improve renal function back to creatinine 1.2 and marked improvement and edema Plan: We will recheck bladder scan today to assure adequate bladder emptying and continue present plan awaiting pathology results for more definitive treatment Continue to mobilize as much as possible and follow labs Time Spent With Patient Time: Total time spent is greater than 50% in coordination of care (as documented) at patient's floor/unit and/or counseling patient:
--- NOTE | 2020-09-03 12:42 | Internal Med Progress Note ---
SUBJECTIVE Subjective Patient information: Note initiated : 09/03/20 at 12:42 pm Service Date, if different from initiated Date: [] Patient: Gio Abreu 85 y/o M admitted on 08/28/20 for confusion. Chief Complaint: [] Interval history: Interval history: History of present illness: Mr. Abreu is a 85 year old M Presents to the ED after several days of increasing weakness and intermittent confusion and most notably also had some twitching in his arm. In the ED with remarkable for acute kidney injury. Also found to be retaining urine and had 540cc remaining in bladder after small urination. He also had chest x-ray which showed a little bit of atelectasis and he had a CT brain which showed the DIETARY TECH shunt in satisfactory position functional. Question of poor oral intake recently. He lives by himself but has somebody stay with him at night. 08/29 Poor sleep but otherwise feeling better. No new complaints. Creatinine did not improve. Discussed case with Dr. Mcneil and will see the patient KUB pending. 08/30 CT findings suspicious for lymphoma and encasing the ureters. Creatinine bumped slightly today.. Patient has no new complaints today. 08/31 No overnight event or new complaints. Patient will undergo cystoscopy with bi lateral stent placement today. No new complaints. 09/01 Patient feeling better. Received bilateral stents yesterday. Renal function improving. No complaints or overnight events. 09/02 Seems more confused today. Scrotal and penile edema, urology aware. Renal function improved. 09/03 Scrotal edema has improved, temp of 99.2, more alter and oriented today. Review of Systems: denies headache/fever/chills/nausea/vomiting/chest or abdominal pain/cough/dyspnea/diarrhea. Otherwise see above. Constitutional Vitals: Vital Signs Temp Pulse Resp BP Pulse Ox 99.2 F H 93 H 16 120/70 94 09/03/20 11:54 09/03/20 04:00 09/03/20 11:54 09/03/20 11:54 09/03/20 11:54 Period Temp Pulse Resp BP Sys/Shelley Pulse Ox Last 24 Hr 97.7 F-99.2 F 93-101 16-20 120-154/70-86 90-95 Intake and Output 09/02/20 09/03/20 09/03/20 21:59 05:59 13:59 Intake Total 800 240 Output Total 575 1050 702 Balance 225 -810 -702 Weight 92.17 kg Intake & Output: Intake & Output 09/02/20 09/03/20 09/03/20 21:59 05:59 13:59 Intake Total 800 240 Output Total 575 1050 702 Balance 225 -810 -702 Weight 92.17 kg Intake: Oral 800 240 Output: Void Amount 575 1050 700 # of times incontinent of urine 2 Other: Meal Dinner Percent of Meal Consumed 75% Feeding Ability Independent Urine Appearance Clear Clear Clear Urine Color Light Blanca Light Blanca Dark Yellow Urine Odor Normal # Voids 2 Exam: General: Alert, Awake, No acute Distress Eyes/N/T: EOMI, Head/Neck: neck supple, CV: RRR, No murmurs, Pulm: Clear b/l, no wheezing/rhonchi/rales Abd: soft, nontender, +BS x4 Ext: no clubbing/cyanosis/ chronic mild LLE edema Neuro: Alert, no focal deficits, moves all extremities. Skin: warm/dry OBJ DATA Labs CBC & Chem 7: 09/02/20 05:33 09/02/20 05:34 Labs: Abnormal Lab Results 09/02/20 09/02/20 09/01/20 05:34 05:33 05:25 RBC 3.46 L Hgb 10.3 L Hct 33.1 L Neut % (Auto) Lymph % (Auto) 10.7 L Lymph # (Auto) 0.90 L BUN 28 H 38 H Creatinine 1.9 H Glucose 111 H 121 H Calcium 8.5 L 09/01/20 05:25 RBC 3.88 L Hgb 11.5 L Hct 37.1 L Neut % (Auto) 78.9 H Lymph % (Auto) 11.6 L Lymph # (Auto) 0.94 L BUN Creatinine Glucose Calcium Meds: Medications Acetaminophen (Acetaminophen 325 Mg Tablet) 650 mg PO Q6HP PRN PRN Reason: PAIN/FEVER > 101 Last Admin: 09/01/20 17:20 Dose: 650 mg Documented by: Acetaminophen (Acetaminophen 500 Mg Tablet) 500 mg PO HS ASHU Last Admin: 09/02/20 20:58 Dose: 500 mg Documented by: Hydrocodone Bitart/Acetaminophen (Hydrocodone/Apap 5/325mg Tablet) 1 tab PO Q4HP PRN PRN Reason: PAIN LEVEL 3-6 Last Admin: 09/03/20 08:21 Dose: 1 tab Documented by: Albuterol/Ipratropium (Ipratropium/Albuterol 3 Ml Ampul.Neb) 3 ml NEB Q4HP PRN PRN Reason: Shortness Of Breath Amlodipine Besylate (Amlodipine 5 Mg Tablet) 2.5 mg PO DAILY [facility] Last Admin: 09/03/20 08:16 Dose: 2.5 mg Documented by: Aspirin (Aspirin 81 Mg Tab.Chew) 81 mg PO QDAY [facility] Last Admin: 09/03/20 08:16 Dose: 81 mg Documented by: Atorvastatin Calcium (Atorvastatin 20 Mg Tablet) 20 mg PO QDAY [facility] Last Admin: 09/03/20 08:17 Dose: 20 mg Documented by: Dextrose (Dextrose 50% 50 Ml Vial) 0 ml IV UD PRN PRN Reason: Hypoglycemia Diagnostic Test (Pha) (Accu-Chek 1 Each Strip) 1 each FS ACHS [facility] Last Admin: 09/03/20 07:26 Dose: 1 each Documented by: Diphenhydramine HCl (Diphenhydramine 25 Mg Capsule) 25 mg PO HS [facility] Last Admin: 09/02/20 20:59 Dose: 25 mg Documented by: Docusate Sodium (Docusate Sodium 100 Mg Capsule) 100 mg PO BID [facility] Last Admin: 09/03/20 08:16 Dose: 100 mg Documented by: Gabapentin (Gabapentin 300 Mg Capsule) 300 mg PO BID [facility] Last Admin: 09/03/20 08:17 Dose: 300 mg Documented by: Glucose (Dextrose 31 Gm Oral.Susp) 15 gm PO PRN PRN PRN Reason: Hypoglycemia Heparin Sodium (Porcine) (Heparin 5,000 Unit/Ml Vial) 5,000 unit SQ Q12 [facility] Last Admin: 09/03/20 08:16 Dose: 5,000 unit Documented by: Hydralazine HCl (Hydralazine 20 Mg/Ml Vial) 0 mg IV Q2HP PRN PRN Reason: Hypertension Last Admin: 09/02/20 04:36 Dose: 10 mg Documented by: Potassium Chloride 40 meq/ (Dextrose) 520 mls @ 130 mls/hr IV UD PRN PRN Reason: Potassium < 3 Magnesium Sulfate (Magnesium Sulfate) 2 gm in 50 mls @ 50 mls/hr IV UD PRN PRN Reason: Magnesium </= 1.6 Insulin Human Lispro (Insulin Lispro 1 Unit/0.01 Ml Unit) 0 unit SQ ACHS [facility]; Protocol Last Admin: 09/03/20 07:26 Dose: Not Given Documented by: Isosorbide Mononitrate (Isosorbide Mononitrate 30 Mg Tab.Xl.24h) 15 mg PO QDAY [facility] Last Admin: 09/03/20 08:17 Dose: 15 mg Documented by: Labetalol HCl (Labetalol 5 Mg/Ml Ml) 0 mg IV Q2HP PRN PRN Reason: Hypertension Last Admin: 08/29/20 09:03 Dose: 20 mg Documented by: Levothyroxine Sodium (Levothyroxine 100 Mcg Tablet) 100 mcg PO QAMAC [facility] Last Admin: 09/03/20 07:26 Dose: 100 mcg Documented by: Melatonin (Melatonin 3 Mg Tablet) 6 - 9 mg PO QHS [facility] Last Admin: 09/02/20 20:58 Dose: 6 mg Documented by: Nitroglycerin (Nitroglycerin 0.4 Mg Tab.Subl) 0.4 mg SL Q5M PRN PRN Reason: Chest Pain Ondansetron HCl (Ondansetron 4 Mg/2 Ml Vial) 4 mg IV Q4HP PRN PRN Reason: Nausea And Vomiting Last Admin: 08/29/20 22:39 Dose: 4 mg Documented by: Polyethylene Glycol (Polyethylene Glycol 3350 17 Gm Packet) 17 gm PO DAILYP PRN PRN Reason: Constipation Last Admin: 09/02/20 20:57 Dose: 17 gm Documented by: Potassium Chloride (Potassium Chloride 20 Meq Tablet) 40 meq PO UD PRN PRN Reason: Potssium is 3-3.5 Potassium Chloride (Potassium Chloride 20 Meq Tablet) 40 meq PO UD PRN PRN Reason: Potassium < 3 Senna (Sennosides 1 Tablet) 2 tab PO DAILYP PRN PRN Reason: Constipation Sodium Chloride (0.9 % Sodium Chloride 10 Ml Syringe) 10 ml IV Q8 [facility] Last Admin: 09/03/20 04:36 Dose: 10 ml Documented by: Sodium Chloride (0.9 % Sodium Chloride 10 Ml Syringe) 10 ml IV Q8 [facility] Last Admin: 09/03/20 05:00 Dose: Not Given Documented by: Tamsulosin HCl (Tamsulosin 0.4 Mg Capsule) 0.8 mg PO HS ASHU Last Admin: 09/02/20 20:58 Dose: 0.8 mg Documented by: Tramadol HCl (Tramadol 50 Mg Tablet) 50 mg PO BIDP PRN; Protocol PRN Reason: pain Last Admin: 09/03/20 08:21 Dose: 50 mg Documented by: A/P Narrative A/P Narrative: Assessment: 85-year-old male with multiple comorbidities including DM, NPH status post DIETARY TECH shunt, CAD status post CABG, hypothyroidism, admitted for obstructive JAKE secondary to retroperitoneal adenopathy which is concerning for lymphoma. 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 *CAD w/ CABG: *Hypothyroidism: *Hyper/Hypo-TN: Recently started on midodrine for low blood outpt, elevated beginning of admission P: -Urology following -f/u renal fxn -Tissue biopsy results pending -hold home meloxicam -hold metformin, SSI -norvasc 2.5 mg daily (new med) -Continue home aspirin/statin/imdur -midodrine held, prn IV BP meds -pt/ot -CM for placement needs -ppx: heparin -Dispo: SNF likely 09/04 full code Time Spent With Patient Time: Total time spent is greater than 50% in coordination of care (as documented) at patient's floor/unit and/or counseling patient: QUALITY VTE Deep Vein Thrombosis/Pulmonary Embolism Present on Admission: No
[2020-09-03] MEDS: hydrALAZINE 20 MG/ML VIAL IV PRN (21:00)
[2020-09-03] MEDS: MELATONIN 3 MG TABLET PO SCH (21:01)
[2020-09-03] MEDS: POLYETHYLENE GLYCOL 3350 17 GM PACKET PO PRN (21:01)
[2020-09-03] MEDS: diphenhydrAMINE 25 MG CAPSULE PO SCH (21:01)
[2020-09-03] MEDS: ACETAMINOPHEN 500 MG TABLET PO SCH (21:01)
[2020-09-03] MEDS: TAMSULOSIN 0.4 MG CAPSULE PO SCH (21:02)
[2020-09-04] MEDS: 0.9 % SODIUM CHLORIDE 10 ML SYRINGE IV SCH ×2 (05:09→05:31)
[2020-09-04] MEDS: HYDROcodone/APAP 5/325MG TABLET PO PRN ×2 (05:09→12:45)
[2020-09-04] MEDS: hydrALAZINE 20 MG/ML VIAL IV PRN (05:09)
[2020-09-04 06:11] LABS: Basophils # (Auto) 0.04 K/mcL (0.00-0.20); Basophils % (Auto) 0.6 % (0.0-2.0); Eosinophils # (Auto) 0.28 K/mcL (0.00-0.70); Eosinophils % (Auto) 4.1 % (0.0-7.0); Hematocrit 33.7 % (41.0-55.0); Hemoglobin 10.4 g/dL (13.5-16.5); Lymphocytes # (Auto) 0.91 K/mcL (1.50-4.80); Lymphocytes % (Auto) 13.5 % (15.0-49.0); Mean Cell Volume 96.8 fL (80.0-100.0); Mean Corpuscular HGB Conc 30.9 g/dL (31.0-36.0); Mean Platelet Volume 9.1 fL (7.4-10.4); Monocytes # (Auto) 0.79 K/mcL (0.10-0.90); Monocytes % (Auto) 11.7 % (1.0-12.0); Neutrophils % (Auto) 70.1 % (38.0-78.0); Platelet Count 345 K/mcL (140-440); RBC 3.48 M/mcL (4.50-5.90); Red Cell Distribution Width 13.2 % (11.5-14.5); WBC 6.8 K/mcL (4.5-11.0)
[2020-09-04 06:46] LABS: Blood Urea Nitrogen 17 mg/dL (8-23); Calcium 8.5 mg/dL (8.6-10.4); Carbon Dioxide 31 mmol/L (22-30); Chloride 100 mmol/L (96-108); Glomerular Filtration Rate 82; Glucose 101 mg/dL (70-105)
--- NOTE | 2020-09-04 07:46 | General Surgery Progress Note ---
SUBJECTIVE Subjective Patient information: Note initiated : 09/04/20 at 7:43 am Service Date, if different from initiated Date: [] Patient: Gio Abreu 85 y/o M admitted on 08/28/20 for confusion. Chief Complaint: [] Interval history: Patient continues to do well pending pathology results No new complaints Constitutional Vitals: Vital Signs Temp Pulse Resp BP Pulse Ox 98.2 F 97 H 18 121/70 92 09/04/20 07:26 09/04/20 07:26 09/04/20 07:26 09/04/20 07:26 09/04/20 04:00 Period Temp Pulse Resp BP Sys/Shelley Pulse Ox Last 24 Hr 98 F-99.2 F 90-100 16-20 106-172/70-86 92-96 Intake and Output 09/03/20 09/04/20 09/04/20 21:59 05:59 13:59 Intake Total 800 Output Total 750 1000 350 Balance -750 -200 -350 Weight 203 lb 4.8 oz Intake & Output: Intake & Output 09/03/20 09/04/20 09/04/20 21:59 05:59 13:59 Intake Total 800 Output Total 750 1000 350 Balance -750 -200 -350 Weight 203 lb 4.8 oz Intake: Oral 800 Output: Void Amount 750 1000 350 Other: Urine Appearance Clear Clear Urine Color Dark Yellow Light Blanca Yellow Brown Blood Tinged Urine Odor Normal Additional findings Additional findings: Comfortable resting well lower extremity and genital edema continues to improve A/P Narrative A/P Narrative: Continue to await pathology results and renal function continues to improve along with edematous changes Which will pathology available today to proceed with likely medical oncology consultation and treatment plan Continue to monitor voiding Time Spent With Patient Time: Total time spent is greater than 50% in coordination of care (as documented) at patient's floor/unit and/or counseling patient:
[2020-09-04] MEDS: LEVOTHYROXINE 100 MCG TABLET PO SCH (07:54)
--- NOTE | 2020-09-04 07:56 | Ultrasound Report ---
INDICATION: edema left lower extremity COMPARISON: None. TECHNIQUE: Grayscale and color flow Doppler spectral imaging of the deep venous system in the left lower extremity. FINDINGS: Negative examination. No evidence for deep venous thrombosis. Negative left common femoral vein, femoral vein, popliteal vein. Posterior tibial veins and peroneal veins are negative. Greater saphenous vein is absent due to previous vein harvesting. There are several enlarged lymph nodes in the left inguinal region. Largest node measures 4 cm in maximum dimension IMPRESSION: Negative examination for deep venous thrombosis Interpreted and Authenticated by: Eris Del Toro 09/04/20
[2020-09-04] MEDS: INSULIN LISPRO 1 UNIT/0.01 ML UNIT SQ SCH ×2 (08:12→11:53)
[2020-09-04] MEDS: HEPARIN 5,000 UNIT/ML VIAL SQ SCH (08:38)
[2020-09-04] MEDS: ISOSORBIDE MONONITRATE 30 MG TAB.XL.24H PO SCH (08:38)
[2020-09-04] MEDS: POLYETHYLENE GLYCOL 3350 17 GM PACKET PO PRN (08:38)
[2020-09-04] MEDS: ATORVASTATIN 20 MG TABLET PO SCH (08:39)
[2020-09-04] MEDS: ASPIRIN 81 MG TAB.CHEW PO SCH (08:39)
[2020-09-04] MEDS: GABAPENTIN 300 MG CAPSULE PO SCH (08:39)
[2020-09-04] MEDS: amLODIPine 5 MG TABLET PO SCH (08:39)
[2020-09-04] MEDS: DOCUSATE SODIUM 100 MG CAPSULE PO SCH (08:39)
--- NOTE | 2020-09-04 10:02 | Surgical Pathology Report ---
Histology Microscopic Diagnosis Specimen A- LYMPH NODE, ABDOMINAL, NEEDLE BIOPSY: --- METASTATIC POORLY DIFFERENTIATED ADENOCARCINOMA. (SEE COMMENT) (ACP:adj) Comments The morphologic appearance and immunohistochemical staining pattern is consistent with metastatic poorly differentiated adenocarcinoma. The immunophenotypic findings are most suggestive of a urothelial primary. The differential includes pancreatic, hepatobiliary and upper gastrointestinal sites. Clinical and radiographic correlation is recommended. Microscopic Description Sections of the abdominal lymph node needle biopsies demonstrate irregular fibroplasia with infiltrative cords and nests of malignant epithelioid cells with background chronic inflammation. The malignant cells have markedly enlarged nuclei with abundant pale shah/eosinophilic cytoplasms. Rare nests have possible rudimentary lumina. Lymphovascular invasion is not definitively identified. An immunohistochemical panel is performed (adequate technical controls). Pancytokeratin plus: Positive CK7, CK20: Positive TTF-1, Napsin-A: Negative CDX2: Negative Melan-A, SOX-10: Negative GATA3: Positive PSA, PSAP, NKX 3.1: Negative p63: Positive HSA: Negative RCC: Negative (ACP:adj) Gross Description Received in formalin designated abdominal lymph node, are four shah sidhu cores of tissue from 0.7 to 1.7 cm in length and up to 0.1 cm in diameter. Totally submitted in two cassettes. (SCB;adj) IHC Disclaimer Some of the tests reported may not have been cleared or approved by the U.S. Food Drug Administration (FDA). However, the FDA has determined that such clearance or approval is not necessary. Pursuant to the requirements of CLIA, this laboratory has established and verified the accuracy and precision of all tests, and additional information about these tests is available upon request. All technical controls are adequate. Electronically Signed Shawn Mosley MD, FCAP Electronically Signed 09/04/2020 10:01
--- NOTE | 2020-09-04 10:10 | Discharge Summary ---
Discharge Provider Provider Patient information: Note initiated : 09/04/20 at 10:02 am Service Date, if different from initiated Date: [] Patient: Gio Abreu 85 y/o M admitted on 08/28/20 for confusion. Chief Complaint: [] Date of admission: 08/28/20 19:45 Discharge date: 09/04/20 Primary care physician: Eris Lane DO Consults: 08/28/20 Consult to Physician [CONS] Stat Comment: Consulting Provider: Stalin Londono Reason For Exam: Physician to Consult 08/29/20 08:44 Consult to Physician [CONS] Routine Comment: Consulting Provider: Anson Mcneil Reason For Exam: Physician to Consult Discharge Meds Discharge Medications Home Medications omega-3 fatty acids 500 mg capsule 1,000 mg PO QDAY cap 01/18/15 [History Confirmed 08/28/20 Last Taken Unknown] nitroglycerin 0.4 mg sublingual tablet 0.4 mg SUBLINGUAL Q5-15M PRN #25 tab 10/05/18 [Rx Confirmed 08/28/20 Last Taken Unknown] cyanocobalamin (vitamin B-12) 2,500 mcg tablet 2,500 mcg PO QDAY 05/20/19 [History Confirmed 08/28/20 Last Taken Unknown] echinacea 380 mg capsule 760 mg PO ONCE cap 05/20/19 [History Confirmed 08/28/20 Last Taken Unknown] glucosamine-chondroitin 250 mg-200 mg tablet 1 tab PO QDAY tab 05/20/19 [History Confirmed 08/28/20 Last Taken Unknown] melatonin 5 mg capsule 5 - 10 mg PO QHS cap 05/20/19 [History Confirmed 08/28/20 Last Taken Unknown] multivitamin 1 tab PO QAM 05/20/19 [History Confirmed 08/28/20 Last Taken Unknown] vit C 250 mg-vit E 90 mg-zinc 40 mg-copper 1 el-[id number]-[id number] capsule 1 tab PO QDAY cap 05/20/19 [History Confirmed 08/28/20 Last Taken Unknown] metformin 500 mg tablet 500 mg PO BID #180 tab 02/29/20 [Rx Confirmed 08/28/20 Last Taken Unknown] isosorbide mononitrate 30 mg tablet,extended release 24 hr 15 mg PO QDAY #45 tab 05/16/20 [Rx Confirmed 08/28/20 Last Taken Unknown] meloxicam 7.5 mg tablet 7.5 mg PO QDAY #60 tab 05/31/20 [Rx Confirmed 08/28/20 Last Taken Unknown] tramadol 50 mg tablet 50 mg PO BID PRN #60 tab 05/31/20 [Rx Confirmed 08/28/20 Last Taken Unknown] atorvastatin 20 mg tablet 20 mg PO QDAY #90 tab 06/07/20 [Rx Confirmed 08/28/20 Last Taken Unknown] gabapentin 300 mg capsule 300 mg PO BID #180 cap 06/07/20 [Rx Confirmed 08/28/20 Last Taken Unknown] levothyroxine 100 mcg tablet 100 mcg PO QDAY #90 tab 07/17/20 [Rx Confirmed 08/28/20 Last Taken Unknown] acetaminophen [Tylenol] 325 mg PO Q6HP PRN #30 tab 09/04/20 [Rx Last Taken Unknown] amlodipine 2.5 mg PO DAILY #30 tab 09/04/20 [Rx Last Taken Unknown] aspirin 81 mg PO QDAY #30 tab 09/04/20 [Rx Last Taken Unknown] tamsulosin 0.8 mg PO HS #60 cap 09/04/20 [Rx Last Taken Unknown] COURSE Hospital Course Hospital course: Presents to the ED after several days of increasing weakness and intermittent confusion and most notably also had some twitching in his arm. In the ED with remarkable for acute kidney injury. Also found to be retaining urine and had 540cc remaining in bladder after small urination. He also had chest x-ray which showed a little bit of atelectasis and he had a CT brain which showed the [employer] shunt in satisfactory position functional. Question of poor oral intake recently. He lives by himself but has somebody stay with him at night. 08/29 Poor sleep but otherwise feeling better. No new complaints. Creatinine did not improve. Discussed case with Dr. Mcneil and will see the patient KUB pending. 08/30 CT findings suspicious for lymphoma and encasing the ureters. Creatinine bumped slightly today.. Patient has no new complaints today. 08/31 No overnight event or new complaints. Patient will undergo cystoscopy with bilateral stent placement today. No new complaints. 09/01 Patient feeling better. Received bilateral stents yesterday. Renal function improving. No complaints or overnight events. 09/02 Seems more confused today. Scrotal and penile edema, urology aware. Renal function improved. 09/03 Scrotal edema has improved, temp of 99.2. Mental status improved, likely at b aseline. 09/04 Left lower extremity asymmetric edema-negative venous duplex. Pathology still pending for lymphadenopathy concerning for lymphoma. Discharged to SNF with urology follow up. May need to be referred to oncology depending on pathology results. Post hospital discharge follow up; Follow up pending pathology-refer to oncology if positive for malignancy. Follow up with urology for bilateral ureteral stent management. Monitor blood pressure-continued Norvasc 2.5 mg daily in addition to previous Imdur. Did not resume midodrine from pior med list. Follow up renal function. 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 Encephalopathy Time Spent with Patient Time attestation: Total time spent providing and/or coordinating discharge services: EXAM Constitutional Vitals: Temp Pulse Resp BP Pulse Ox 98.2 F 97 H 18 121/70 92 09/04/20 07:26 09/04/20 07:26 09/04/20 07:26 09/04/20 07:26 09/04/20 04:00 Discharge Data Data Completed and Pending Labs on day of discharge: Labs from last 24 hours 09/04/20 09/04/20 04:54 04:54 WBC 6.8 RBC 3.48 L Hgb 10.4 L Hct 33.7 L MCV 96.8 MCH 29.9 MCHC 30.9 L RDW 13.2 Plt Count 345 MPV 9.1 Neut % (Auto) 70.1 Lymph % (Auto) 13.5 L Garrett % (Auto) 11.7 Eos % (Auto) 4.1 Baso % (Auto) 0.6 Lymph # (Auto) 0.91 L Garrett # (Auto) 0.79 Eos # (Auto) 0.28 Baso # (Auto) 0.04 Absolute Neutrophils 4.73 Sodium 141 Potassium 3.6 Chloride 100 Carbon Dioxide 31 H Anion Gap 10.0 BUN 17 Creatinine 0.8 GFR Calculation 82 Glucose 101 Calcium 8.5 L Discharge Plan Patient/Caregiver Discharge Instructions Activity: as per physical therapy Diet: Consistent Carbohydrate Prescriptions: New acetaminophen [Tylenol] 325 mg Tablet 325 mg PO Q6HP PRN (Reason: Pain/Fever > 101) Qty: 30 RF: 2 amlodipine 5 mg Tablet 2.5 mg PO DAILY Qty: 30 RF: 3 tamsulosin 0.4 mg Capsule 0.8 mg PO HS Qty: 60 RF: 0 aspirin 81 mg Tablet,Chewable 81 mg PO QDAY Qty: 30 RF: 4 Continued isosorbide mononitrate 30 mg tablet extended release 24 hr 15 mg PO QDAY Qty: 45 RF: 3 meloxicam 7.5 mg tablet 7.5 mg PO QDAY Qty: 60 RF: 1 tramadol 50 mg tablet 50 mg PO BID PRN (Reason: pain) Qty: 60 RF: 2 levothyroxine 100 mcg tablet 100 mcg PO QDAY Qty: 90 RF: 3 omega-3 fatty acids 500 mg capsule 1,000 mg PO QDAY RF: 0 nitroglycerin 0.4 mg tablet, sublingual 0.4 mg SUBLINGUAL Q5-15M PRN (Reason: chest pain) Qty: 25 RF: 3 PreserVision AREDS-2 473-619-23-1 gm-kpqp-ro-mg capsule 1 tab PO QDAY RF: 0 multivitamin Tablet 1 tab PO QAM RF: 0 melatonin 5 mg capsule 5 - 10 mg PO QHS RF: 0 cyanocobalamin (vitamin B-12) 2,500 mcg tablet 2,500 mcg PO QDAY RF: 0 glucosamine-chondroitin [Osteo Bi-Flex] 250-200 mg tablet 1 tab PO QDAY RF: 0 echinacea 380 mg capsule 760 mg PO ONCE RF: 0 metformin 500 mg tablet 500 mg PO BID Qty: 180 RF: 3 gabapentin 300 mg capsule 300 mg PO BID Qty: 180 RF: 1 atorvastatin 20 mg tablet 20 mg PO QDAY Qty: 90 RF: 1 Discontinued midodrine 10 mg tablet 5 mg PO TID Qty: 45 RF: 1 aspirin 325 mg tablet 325 mg PO QDAY RF: 0 diphenhydramine-acetaminophen [Tylenol PM Extra Strength] 25-500 mg tablet 1 tab PO QHS RF: 0 Other Ambulatory Orders: OT Discharge Order (Routine) Location: None Selected Ordered By: Matt Yeung Physical Therapy at Discharge - General (Routine) Location: None Selected Ordered By: Matt Yeung Follow Up Plan Follow up with: Eris Lane DO [Primary Care Provider] - Hermelindo Buck MD [Physician] - 12/25/20 10:15 am Patient Disposition: Xfer SNF Rehab Potential: Fair I certify that the patient requires SNF services: Yes Overall status at discharge: patient is progressing back to baseline Discharge Orders: Discharge Order (Routine); Ordered 09/04/20 Ordered By: Matt LYNN VTE Deep Vein Thrombosis/Pulmonary Embolism Present on Admission: No
== END 2020-09-04 13:45 | DRG 683 ==
LOC: ED 11:09 → MEDSUR 19:45
PROVIDERS: ADMIT Internal Medicine; ATTEND Internal Medicine